=== PATIENT | male | born 1950 | race Hispanic/Latino ===

== ENCOUNTER 2017-11-04 20:51 | Emergency (ER) | payer OTHER ==
[2017-11-04] MEDS ORDERED: SODIUM CHLORIDE 0.9% 1000ML 1,000 ML IV ONE (21:34)
[2017-11-04] MEDS ORDERED: INSULIN HUMULIN R 100 UNIT/ML 3ML ONE (21:35)
[2017-11-04 21:40] LABS: BASOPHILS % (AUTO) 0.6 % (0.0-5.0); EOSINOPHILS % (AUTO) 2.2 % (0.0-8.0); HEMATOCRIT 38.1 % (42-54); LYMPHOCYTES % (AUTO) 17.7 % (21.0-51.0); MEAN CORPUSCULAR HEMOGLOBIN 31.4 pg (27.0-33.0); MEAN CORPUSCULAR VOLUME 89.6 fL (79-99); MONOCYTES % (AUTO) 7.8 % (3.0-13.0); NEUTROPHILS % (AUTO) 71.7 % (40.0-77.0); PLATELET COUNT (AUTO) 144 K/uL (130-400); RED BLOOD CELL COUNT(AUTO) 4.25 MIL/uL (4.50-6.20); RED CELL DISTRIBUTION WIDTH 12.2 % (11.0-15.5); WHITE BLOOD COUNT (AUTO) 7.8 K/uL (4.8-10.8)
[2017-11-04 21:51] LABS: ACETONE,BLOOD NEGATIVE (NEGATIVE)
[2017-11-04 21:54] LABS: ALANINE AMINOTRANSFERASE 27 U/L (12-78); ALBUMIN 3.6 g/dL (3.5-5.0); ASPARTATE AMINOTRANSFERASE 16 U/L (10-37); BILIRUBIN,TOTAL 0.3 mg/dL (0.2-1.0); CARBON DIOXIDE 29 mmol/L (21-32); CHLORIDE 97 mmol/L (101-111); GLOMERULAR FILTR. RATE CALC 80 mL/min (>60); POTASSIUM 4.1 mmol/L (3.5-5.1); SODIUM SERUM 135 mmol/L (136-145); TOTAL PROTEIN, SERUM 7.2 g/dL (6.0-8.3); UREA NITROGEN, BLOOD 13 mg/dL (7-18)
[2017-11-04 21:56] LABS: GLUCOSE,RANDOM 532 mg/dL (70-105)
[2017-11-04 22:09] LABS: APPEARANCE,URINE Clear (CLEAR); BILIRUBIN,URINE Negative (NEGATIVE); COLOR,URINE Yellow (YELLOW); GLUCOSE, URINE (UA) >=1000 mg/dL (NEGATIVE); KETONES,URINE Negative (NEGATIVE); LEUKOCYTE ESTERASE ,URINE Trace (NEGATIVE); NITRATE,URINE Negative (NEGATIVE); OCCULT BLOOD,URINE Negative (NEGATIVE); PROTEIN,URINE Negative (NEGATIVE); UROBILINOGEN,URINE 0.2 mg/dL (0.2-1.0)
[2017-11-04 22:17] LABS: BACTERIA,URINE Rare /HPF (None Seen); RBC,URINE None Seen /HPF (0-1); SQUAMOUS EPITHELIAL CELL,UR 0-2 /LPF (0-2)
== END 2017-11-04 22:56 | disposition home or self-care (01) ==
LOC: EDH 20:51
DX: E11.65 Type 2 diabetes mellitus with hyperglycemia (principal); I10 Essential (primary) hypertension; E78.5 Hyperlipidemia, unspecified; Z72.0 Tobacco use
CPT/HCPCS: 36415; 80053; 81001; 82009; 82948 ×2; 85025; 96361; 96374; 99284; J1815; J7030

== ENCOUNTER 2018-01-02 16:38 | Emergency (ER) | payer OTHER ==
[2018-01-02 16:52] LABS: APPEARANCE,URINE CLEAR (CLEAR); BILIRUBIN,URINE NEGATIVE (NEGATIVE); COLOR,URINE YELLOW (YELLOW); GLUCOSE, URINE (UA) NEGATIVE (NEGATIVE); KETONES,URINE NEGATIVE (NEGATIVE); LEUKOCYTE ESTERASE ,URINE MODERATE (NEGATIVE); NITRATE,URINE NEGATIVE (NEGATIVE); OCCULT BLOOD,URINE NEGATIVE (NEGATIVE); PROTEIN,URINE TRACE (NEGATIVE); UROBILINOGEN,URINE 0.2 mg/dL (0.2-1.0)
[2018-01-02 17:00] LABS: MUCUS,URINE Rare LPF (None Seen); RBC,URINE 0-1 /HPF (0-1)
[2018-01-02 17:01] LABS: BACTERIA,URINE Rare /HPF (None Seen)
[2018-01-02 17:03] LABS: BASOPHILS % (AUTO) 0.8 % (0.0-5.0); EOSINOPHILS % (AUTO) 1.4 % (0.0-8.0); HEMATOCRIT 38.4 % (42-54); LYMPHOCYTES % (AUTO) 20.2 % (21.0-51.0); MEAN CORPUSCULAR HEMOGLOBIN 31.4 pg (27.0-33.0); MEAN CORPUSCULAR HGB CONC 35.7 g/dL (32.0-36.0); MONOCYTES % (AUTO) 6.6 % (3.0-13.0); NUCLEATED RED BLOOD CELLS 0.1 % (0.0-0.19); PLATELET COUNT (AUTO) 184 K/uL (130-400); RED BLOOD CELL COUNT(AUTO) 4.36 MIL/uL (4.50-6.20); RED CELL DISTRIBUTION WIDTH 12.8 % (11.0-15.5); WHITE BLOOD COUNT (AUTO) 9.3 K/uL (4.8-10.8)
[2018-01-02 17:19] LABS: CREATININE 0.9 mg/dL (0.5-1.5); POTASSIUM 3.5 mmol/L (3.5-5.1)
[2018-01-02 17:23] LABS: ALBUMIN 3.9 g/dL (3.5-5.0); BILIRUBIN,TOTAL 0.6 mg/dL (0.2-1.0)
[2018-01-02] MEDS ORDERED: MORPHINE SULFATE 4 MG/1ML SYG ONE (17:24)
== END 2018-01-02 21:15 | disposition home or self-care (01) ==
LOC: EDH 16:38
DX: R10.9 Unspecified abdominal pain (principal); R35.0 Frequency of micturition; R51 Headache; R11.10 Vomiting, unspecified; E11.9 Type 2 diabetes mellitus without complications; E78.5 Hyperlipidemia, unspecified; I10 Essential (primary) hypertension; Z72.0 Tobacco use
CPT/HCPCS: 36415; 71046; 74176; 80053; 81001; 85025; 87804 ×2; 96374; 96375; 99285; J2270

== ENCOUNTER 2019-02-07 11:08 | Emergency (ER) | payer OTHER, MEDICARE ==
[2019-02-07] MEDS ORDERED: IBUPROFEN 600 MG TABLET ONE (11:28)
[2019-02-07 12:17] LABS: BASOPHILS % (AUTO) 0.7 % (0.0-5.0); EOSINOPHILS % (AUTO) 1.5 % (0.0-8.0); HEMATOCRIT 34.7 % (42-54); LYMPHOCYTES % (AUTO) 25.4 % (21.0-51.0); MEAN CORPUSCULAR HEMOGLOBIN 31.4 pg (27.0-33.0); MEAN CORPUSCULAR HGB CONC 35.4 g/dL (32.0-36.0); MEAN CORPUSCULAR VOLUME 88.6 fL (79-99); MONOCYTES % (AUTO) 6.7 % (3.0-13.0); NEUTROPHILS % (AUTO) 65.7 % (40.0-77.0); NUCLEATED RED BLOOD CELLS 0.1 % (0.0-0.19); PLATELET COUNT (AUTO) 154 K/uL (130-400); RED BLOOD CELL COUNT(AUTO) 3.91 MIL/uL (4.50-6.20); RED CELL DISTRIBUTION WIDTH 13.2 % (11.0-15.5)
[2019-02-07 12:30] LABS: CREATININE 0.8 mg/dL (0.5-1.5); POTASSIUM 3.5 mmol/L (3.5-5.1)
[2019-02-07 12:34] LABS: ALBUMIN 3.8 g/dL (3.5-5.0); BILIRUBIN,TOTAL 0.6 mg/dL (0.2-1.0); TOTAL PROTEIN, SERUM 7.3 g/dL (6.0-8.3)
== END 2019-02-07 12:47 | disposition home or self-care (01) ==
LOC: EDH 11:08
DX: R05 Cough (principal); R07.81 Pleurodynia; E11.9 Type 2 diabetes mellitus without complications; E78.5 Hyperlipidemia, unspecified; I10 Essential (primary) hypertension; Z72.0 Tobacco use
CPT/HCPCS: 36415; 71046; 80053; 84484; 85025; 93005

== ENCOUNTER 2020-07-03 12:19 | Emergency (ER) | payer OTHER, MEDICARE ==
[2020-07-03 12:46] LABS: BASOPHILS % (AUTO) 0.3 % (0.0-5.0); EOSINOPHILS % (AUTO) 0.4 % (0.0-8.0); HEMATOCRIT 39.8 % (42-54); LYMPHOCYTES % (AUTO) 17.8 % (21.0-51.0); MEAN CORPUSCULAR HEMOGLOBIN 30.5 pg (27.0-33.0); MEAN CORPUSCULAR HGB CONC 34.7 g/dL (32.0-36.0); MEAN CORPUSCULAR VOLUME 87.9 fL (79-99); MONOCYTES % (AUTO) 8.2 % (3.0-13.0); NEUTROPHILS % (AUTO) 72.7 % (40.0-77.0); PLATELET COUNT (AUTO) 132 K/uL (130-400); RED BLOOD CELL COUNT(AUTO) 4.53 MIL/uL (4.50-6.20); RED CELL DISTRIBUTION WIDTH 12.2 % (11.0-15.5); WHITE BLOOD COUNT (AUTO) 9.8 K/uL (4.8-10.8)
[2020-07-03 12:53] LABS: CREATININE 1.4 mg/dL (0.5-1.5); POTASSIUM 4.3 mmol/L (3.5-5.1)
[2020-07-03] MEDS ORDERED: INSULIN HUMULIN R 100 UNIT/ML 3ML ONE (12:53)
[2020-07-03 12:58] LABS: ALBUMIN 3.5 g/dL (3.5-5.0); BILIRUBIN,TOTAL 0.6 mg/dL (0.2-1.0); TOTAL PROTEIN, SERUM 7.8 g/dL (6.0-8.3)
[2020-07-03 14:11] LABS: APPEARANCE,URINE Clear (CLEAR); BILIRUBIN,URINE Negative (NEGATIVE); COLOR,URINE Yellow (YELLOW); GLUCOSE, URINE (UA) >=1000 mg/dL (NEGATIVE); KETONES,URINE Negative (NEGATIVE); LEUKOCYTE ESTERASE ,URINE Trace (NEGATIVE); NITRATE,URINE Negative (NEGATIVE); OCCULT BLOOD,URINE Negative (NEGATIVE); PH,URINE 5.5 (5.0-8.0); PROTEIN,URINE Negative (NEGATIVE)
[2020-07-03 14:25] LABS: BACTERIA,URINE Few /HPF (None Seen); MUCUS,URINE Few LPF (None Seen); RBC,URINE 0-1 /HPF (0-1); SQUAMOUS EPITHELIAL CELL,UR Few /HPF (0-2)
== END 2020-07-03 14:36 | disposition home or self-care (01) ==
LOC: EDH 12:19
DX: E11.65 Type 2 diabetes mellitus with hyperglycemia (principal); R20.2 Paresthesia of skin; E78.5 Hyperlipidemia, unspecified; I10 Essential (primary) hypertension; Z72.0 Tobacco use
CPT/HCPCS: 36415; 80053; 81001; 82948 ×2; 85025; 96361; 96374; 99283; J1815

== ENCOUNTER 2020-12-22 19:00 | Emergency (ER) | payer OTHER, MEDICARE ==
[2020-12-22 19:39] LABS: APPEARANCE,URINE Cloudy (CLEAR); BILIRUBIN,URINE Negative (NEGATIVE); COLOR,URINE Yellow (YELLOW); GLUCOSE, URINE (UA) >=1000 mg/dL (NEGATIVE); KETONES,URINE Negative (NEGATIVE); LEUKOCYTE ESTERASE ,URINE Negative (NEGATIVE); NITRATE,URINE Negative (NEGATIVE); OCCULT BLOOD,URINE Negative (NEGATIVE); PROTEIN,URINE Negative (NEGATIVE); UROBILINOGEN,URINE 0.2 mg/dL (0.2-1.0)
[2020-12-22 19:47] LABS: BACTERIA,URINE Rare /HPF (None Seen); MUCUS,URINE Few LPF (None Seen); SQUAMOUS EPITHELIAL CELL,UR Moderate /HPF (0-2)
[2020-12-22] MEDS ORDERED: TAMSULOSIN HCL 0.4 MG CAP.ER.24H ONE (20:07)
[2020-12-22] MEDS ORDERED: KETOROLAC TROMETHAMINE 15MG/ML ONE (20:08)
[2020-12-22 20:18] LABS: BASOPHILS % (AUTO) 1.1 % (0.0-5.0); EOSINOPHILS % (AUTO) 2.1 % (0.0-8.0); HEMATOCRIT 36.7 % (42-54); LYMPHOCYTES % (AUTO) 26.8 % (21.0-51.0); MEAN CORPUSCULAR HEMOGLOBIN 30.1 pg (27.0-33.0); MEAN CORPUSCULAR HGB CONC 34.3 g/dL (32.0-36.0); MEAN CORPUSCULAR VOLUME 87.6 fL (79-99); MONOCYTES % (AUTO) 7.4 % (3.0-13.0); NEUTROPHILS % (AUTO) 62.1 % (40.0-77.0); PLATELET COUNT (AUTO) 175 K/uL (130-400); RED BLOOD CELL COUNT(AUTO) 4.19 MIL/uL (4.50-6.20); WHITE BLOOD COUNT (AUTO) 6.5 K/uL (4.8-10.8)
[2020-12-22 20:42] LABS: CREATININE 1.1 mg/dL (0.5-1.5); POTASSIUM 3.9 mmol/L (3.5-5.1)
[2020-12-22 20:46] LABS: ALBUMIN 3.8 g/dL (3.5-5.0); BILIRUBIN,TOTAL 0.5 mg/dL (0.2-1.0); TOTAL PROTEIN, SERUM 7.6 g/dL (6.0-8.3)
[2020-12-22] MEDS ORDERED: HYDROCODONE/ACETAMINOPHEN 5/325 MG TAB ONE (21:04)
== END 2020-12-22 21:16 | disposition home or self-care (01) ==
LOC: EDH 19:00
DX: S39.012A Strain of muscle, fascia and tendon of lower back, initial encounter (principal); S39.013A Strain of muscle, fascia and tendon of pelvis, initial encounter; S39.011A Strain of muscle, fascia and tendon of abdomen, initial encounter; R10.32 Left lower quadrant pain; M54.5 Low back pain; E11.9 Type 2 diabetes mellitus without complications; E78.5 Hyperlipidemia, unspecified; I10 Essential (primary) hypertension; X58.XXXA Exposure to other specified factors, initial encounter; Y93.89 Activity, other specified; Y92.89 Other specified places as the place of occurrence of the external cause; Y99.8 Other external cause status
CPT/HCPCS: 36415; 74176; 80053; 81001; 83690; 84484; 85025; 93005; 96374; 99285; J1885

== ENCOUNTER 2024-10-28 04:12 | Inpatient (IN) | payer OTHER, MEDICARE ==
[~2024-10-28] VITALS: Ht 160 cm; Wt 77.7 kg
--- NOTE | 2024-10-28 04:16 | NUR ---
PT TAKEN TO CT AT THIS TIME
--- NOTE | 2024-10-28 04:18 | NUR ---
family did not bring medications
[2024-10-28 04:27] LABS: BASOPHILS # (AUTO) 0.06 K/uL (0.00-0.20); BASOPHILS % (AUTO) 0.6 % (0.0-5.0); EOSINOPHILS # (AUTO) 0.15 K/uL (0.00-0.70); EOSINOPHILS % (AUTO) 1.5 % (0.0-8.0); HEMATOCRIT 43.8 % (42-54); IMMATURE GRANULOCYTE ABSOLUTE 0.06 K/uL (0-1); LYMPHOCYTES # (AUTO) 4.3 K/uL (1.0-4.8); LYMPHOCYTES % (AUTO) 42.1 % (21.0-51.0); MEAN CORPUSCULAR HEMOGLOBIN 30.4 pg (27.0-33.0); MEAN CORPUSCULAR HGB CONC 34.9 g/dL (32.0-36.0); MEAN CORPUSCULAR VOLUME 86.9 fL (79-99); MONOCYTES # (AUTO) 0.7 K/uL (0.1-1.0); MONOCYTES % (AUTO) 6.7 % (3.0-13.0); NEUTROPHILS # (AUTO) 4.9 K/uL (1.8-7.7); NEUTROPHILS % (AUTO) 48.5 % (40.0-77.0); PLATELET COUNT (AUTO) 188 K/uL (130-400); RED BLOOD CELL COUNT(AUTO) 5.04 MIL/uL (4.50-6.20); RED CELL DISTRIBUTION WIDTH 12.2 % (11.0-15.5); WHITE BLOOD COUNT (AUTO) 10.1 K/uL (4.8-10.8)
[2024-10-28 04:33] LABS: POTASSIUM 3.5 mmol/L (3.5-5.1)
[2024-10-28 04:39] LABS: INR <= 0.93 (0.85-1.15); PROTHROMBIN TIME 10.2 SEC (9.6-11.6)
[2024-10-28 04:52] LABS: B-TYPE NATRIURETIC PEPTIDE 12 pg/mL (0-100)
--- NOTE | 2024-10-28 04:58 | EKG ---
[facility] Test Date: 2024-10-28 Test Time: 04:14:49 Pat Name: FLAVIA RAMIREZ Department: ED Room: 202 Gender: M Mending Carrier: [id number] : 1950 Requested By: THAI JIMENEZ Order Number: [id number] Reading MD: Rolf Santillan Measurements Intervals [place] Rate: 71 P: 0 TN: 76 QRS: 38 QRSD: 112 T: 32 QT: 410 QTc: 446 Interpretive Statements Sinus rhythm Low voltage, extremity leads Compared to ECG 12/22/2020 19:28:31 Ventricular premature complex(es) no longer present Electronically Signed On 10-28-2024 18:40:23 CERTIFIED MEDICAL ASSISTANT by Rolf Santillan Please click the below link to view image of tracing.
[2024-10-28 05:13] LABS: APPEARANCE,URINE CLEAR (CLEAR); BILIRUBIN,URINE NEGATIVE (NEGATIVE); COLOR,URINE COLORLESS (YELLOW); GLUCOSE, URINE (UA) >=1000 mg/dL (NEGATIVE); KETONES,URINE NEGATIVE (NEGATIVE); LEUKOCYTE ESTERASE ,URINE NEGATIVE Leu/uL (NEGATIVE); NITRATE,URINE NEGATIVE (NEGATIVE); OCCULT BLOOD,URINE NEGATIVE (NEGATIVE); PROTEIN,URINE NEGATIVE (NEGATIVE); UROBILINOGEN,URINE 0.2 mg/dL (0.2-1.0)
[2024-10-28 05:14] LABS: ADD UA MICROSCOPIC YES
[2024-10-28 05:16] LABS: AMPHET/METH SCREEN,URINE NEGATIVE (NEGATIVE); BARBITURATE SCREEN, URINE NEGATIVE (NEGATIVE); BENZODIAZEPINES SCREEN,URINE NEGATIVE (NEGATIVE); CANNABINOID SCREEN,URINE NEGATIVE (NEGATIVE); COCAINE SCREEN,URINE NEGATIVE (NEGATIVE); OPIATE SCREEN,URINE NEGATIVE (NEGATIVE); PHENCYCLIDINE SCREEN,URINE NEGATIVE (NEGATIVE)
[2024-10-28 05:17] LABS: BACTERIA,URINE FEW /HPF (None Seen); MUCUS,URINE RARE LPF (None Seen); RBC,URINE 0-1 /HPF (0-1); SQUAMOUS EPITHELIAL CELL,UR RARE /HPF (0-2)
--- NOTE | 2024-10-28 06:38 | ERN ---
General Chief Complaint: Multiple Trauma/Fall Stated Complaint: S/P FALL Time Seen by MD: 04:18 History of Present Illness Initial Comments 74-year-old male brought in by family for altered mentation possible an injury. Patient was drinking earlier in the night. According to family they found him down and reported that they think he fell. They report that his respirations were abnormal and they briefly started CPR because they did not think he was breathing. On arrival here he was altered but breathing. He has no complaints. He is clinically intoxicated but able to answer yes or no questions. He was slurring his words. There is no obvious signs of trauma. Allergies: Coded Allergies: No Known Drug Allergies (Unverified Allergy, Unknown, 06/26/19) Home Meds Reported Medications Amlodipine Besylate (Amlodipine Besylate) 10 Mg Tablet, 10 MG PO DAILY for 30 Days, #30 TAB 0 Refills 10/28/24 Gabapentin (Gabapentin) 100 Mg Capsule, 100 MG PO DAILY, CAP 10/28/24 Levothyroxine Sodium (Levothyroxine) 50 Mcg Capsule, 50 MCG PO ACBKFST, CAP 10/28/24 Losartan Potassium (Losartan Potassium) 100 Mg Tablet, 100 MG PO DAILY, TAB 10/28/24 Lovastatin (Lovastatin) 20 Mg Tablet, 20 MG PO DAILY, TAB 10/28/24 Metformin HCl (Metformin HCl) 1,000 Mg Tablet, 1000 MG PO BIDMEALS, TAB 10/28/24 Semaglutide (Ozempic) 1 Mg/0.75 Ml (4 Mg/3 Ml) Pen.injctr, 1 MG SQ QWEEK for 30 Days, #3 ML 0 Refills 10/28/24 Past Medical History Past Medical History: Diabetes-Type II, Unknown Past Surgical History: Unknown ROS Dictation CONSTITUTIONAL: No chills, no fever, no weakness, no diaphoresis, no malaise. HEAD/FACE: No signs of trauma. EENT: No eye pain, no blurred vision, no tearing, no double vision, no ear pain, no ear discharge, no nose pain, no nasal congestion, no throat pain, no throat swelling, no mouth pain. RESPIRATORY: No cough, no orthopnea, no SOB, no stridor, no wheezing. CARDIOVASCULAR: No chest pain, no edema, no palpitations, no syncope. GASTROINTESTINAL/ABDOMINAL: No abdominal pain, no constipation, no diarrhea, no nausea, no vomiting. GENITOURINARY: No abnormal discharge, no dysuria, no frequent urination, no hematuria. No complaints of pain in the genitals. MUSCULOSKELETAL: No back pain, no gout, no joint pain, no joint swelling, no muscle pain, no muscle stiffness, no neck pain. INTEGUMENTARY: No change in color, no change in hair/nails, no dryness, no lesion, no lumps, no rash. NEUROLOGICAL/PSYCH: No anxiety, not depressed, no emotional problem, no headache, no numbness, no pre-existing deficit, no history of seizures, no tremors, no weakness. HEMATOLOGIC/LYMPHATIC: Not anemic, no history of blood clots, no apparent bleeding, no bruising, glands not swollen. All Systems Negative, Except as Noted. Physical Exam Physical Exam Dictation VITAL SIGNS: Reviewed. GENERAL APPEARANCE: Slurring words but if of answer questions, obese. HEAD AND FACE: Non-traumatic. EYES: PERRL, pink conjunctivas, eyelid no trauma, anterior chamber clear. EARS: Pinnas intact and no signs of trauma or erythema. Ear canals clear and no discharge. TMs no erythema. NOSE: No discharge, no bleeding. OROPHARYNX: Mouth normal, teeth no caries, tongue pink. Pharynx clear, no erythema. Tonsils no exudates, no abscesses noted. Mucous membrane moist. NECK: Supple, non-tender, no thyromegaly, no masses, no JVD, no bruits. BREAST: Deferred. CHEST: No tenderness, no crepitus, no paradoxical movement, no retractions. LUNGS: Clear, well-ventilated, symmetric, no rales, no wheezing, no rhonchi, no stridor, good breath sounds bilaterally. HEART: Regular rate, regular rhythm, no murmur, no gallops. VASCULAR: No peripheral edema. ABDOMEN: Soft, positive bowel sounds, nondistended, no guarding, nontender, no rebound, no masses no hepatomegaly, no splenomegaly, no Foote's sign, no hernias. RECTAL: Deferred. GENITAL: Deferred. NEUROLOGICAL: Normal speech, gross motor function intact, gross sensory funct ion intact. MUSCULOSKELETAL: Neck nontender, full range of motion, back nontender, full range of motion. EXTREMITIES: Nontender, full range of motion. SKIN: Color pink, dry, no turgor, no rash, no lacerations, no abrasions, no contusions. LYMPHATICS: Deferred. Results Laboratory and Microbiology Lab and Micro Result Laboratory Tests Test 10/28/24 04:16 10/28/24 04:54 White Blood Count 10.1 K/uL (4.8-10.8) Red Blood Count 5.04 MIL/uL (4.50-6.20) Hemoglobin 15.3 g/dL (14.0-18.0) Hematocrit 43.8 % (42-54) Mean Corpuscular Volume 86.9 fL (79-99) Mean Corpuscular Hemoglobin 30.4 pg (27.0-33.0) Mean Corpuscular Hemoglobin Concent 34.9 g/dL (32.0-36.0) Red Cell Distribution Width 12.2 % (11.0-15.5) Platelet Count 188 K/uL (130-400) Mean Platelet Volume 11.6 fL (7.5-10.5) H Immature Granulocyte % (Auto) 0.6 % (0-1) Neutrophils (%) (Auto) 48.5 % (40.0-77.0) Lymphocytes (%) (Auto) 42.1 % (21.0-51.0) Monocytes (%) (Auto) 6.7 % (3.0-13.0) Eosinophils (%) (Auto) 1.5 % (0.0-8.0) Basophils (%) (Auto) 0.6 % (0.0-5.0) Neutrophils # (Auto) 4.9 K/uL (1.8-7.7) Lymphocytes # (Auto) 4.3 K/uL (1.0-4.8) Monocytes # (Auto) 0.7 K/uL (0.1-1.0) Eosinophils # (Auto) 0.15 K/uL (0.00-0.70) Basophils # (Auto) 0.06 K/uL (0.00-0.20) Absolute Immature Granulocyte (auto 0.06 K/uL (0-1) Nucleated Red Blood Cells 0.0 % (0.0-0.19) Prothrombin Time 10.2 SEC (9.6-11.6) Prothromb Time International Ratio <= 0.93 (0.85-1.15) Sodium Level 139 mmol/L (136-145) Potassium Level 3.5 mmol/L (3.5-5.1) Chloride Level 99 mmol/L (101-111) L Carbon Dioxide Level 30 mmol/L (21-32) Blood Urea Nitrogen 8 mg/dL (7-18) Creatinine 1.0 mg/dL (0.5-1.3) Glomerular Filtration Rate Calc 80 mL/min (>90) Random Glucose 300 mg/dL (70-105) H Total Calcium 9.1 mg/dL (8.5-10.1) Total Creatine Kinase 177 U/L (21-232) # Troponin I High Sensitivity 6.1 ng/L (4-75) B-Type Natriuretic Peptide 12 pg/mL (0-100) Serum Alcohol 250 mg/dL (0-10) H Urine Color COLORLESS (YELLOW) Urine Appearance CLEAR (CLEAR) Urine pH 5.0 (5.0-8.0) Urine Specific [place] 1.006 (1.001-1.031) Urine Protein NEGATIVE mg/dL (NEGATIVE) Urine Glucose (UA) >=1000 mg/dL (NEGATIVE) H Urine Ketones NEGATIVE mg/dL (NEGATIVE) Urine Occult Blood NEGATIVE (NEGATIVE) Urine Nitrate NEGATIVE (NEGATIVE) Urine Bilirubin NEGATIVE mg/dL (NEGATIVE) Urine Urobilinogen 0.2 mg/dL (0.2-1.0) Urine Leukocyte Esterase NEGATIVE [place]/uL Urine RBC 0-1 /HPF (0-1) Urine WBC 2-5 /HPF (0-1) H Urine Squamous Epithelial Cells RARE /HPF (0-2) Urine Bacteria FEW /HPF (None Seen) Urine Opiates Screen NEGATIVE (NEGATIVE) Urine Barbiturates Screen NEGATIVE (NEGATIVE) Urine Phencyclidine Screen NEGATIVE (NEGATIVE) Urine Amphetamines Screen NEGATIVE (NEGATIVE) Urine Benzodiazepines Screen NEGATIVE (NEGATIVE) Urine Cocaine Screen NEGATIVE (NEGATIVE) Urine Marijuana (THC) Screen NEGATIVE (NEGATIVE) MDM MDM: Differential diagnosis: Rationale: Tests considered and ordered secondary to shared decision making include: Previous outside records reviewed: Old ER visits. Risk of complication and/or morbidity or mortality of patient management: None Medications-Per medication reconciliation Need for hospitalization: Patient does meet criteria for hospitalization. Need for emergency major/minor surgery: No There are no social concerns with this patient. Prescription drug management Prescriptions will include symptomatic care Patient's prior external medical records from other ER visits were reviewed by me as indicated. Prior testing and results from previous visits were reviewed. Prior tests were taken into account with medical decision making and resource utilization, independent historian/historians were used to obtain complete medical history. I independently interpreted the test that were performed, results were reviewed by me and considered findings on radiology if ordered. Medical management and examination interpretation discussions were had by me with other qualified healthcare professionals as indicated for the patient's care. ED Course Orders Procedure Category Date Status Time Alcohol, Blood LAB 10/28/24 Complete 04:18 Cardiac Panel LAB 10/28/24 Complete 04:18 Cbc With Differential LAB 10/28/24 Complete 04:18 Basic Metabolic Panel LAB 10/28/24 Complete 04:18 B-Type Natriuretic LAB 10/28/24 Complete Peptide 04:18 Prothrombin Time With LAB 10/28/24 Complete INR 04:18 Urinalysis Profile LAB 10/28/24 Complete 04:18 12 Lead Ekg Tracing- EKG 10/28/24 Resulted Technical 04:18 Chest 1vw RAD 10/28/24 Resulted 04:18 Drug Screen Urine LAB 10/28/24 Complete 04:18 Ct Head/Brain W/O CT 10/28/24 Resulted Contrast 04:18 Ct Cervical Spine W/O CT 10/28/24 Resulted Contrast 04:18 Vital Signs Date Time Temp Pulse Resp B/P (MAP) Pulse Ox O2 Delivery O2 Flow Rate FiO2 10/28/24 07:16 97.5 70 18 105/61 100 Room Air* 0 21 10/28/24 04:45 97.2 82 12 111/51 97 Room Air* 0 21 10/28/24 04:15 97.0 76 20 156/73 98 Room Air* 0 21 DX & DISP Disposition: Inpatient Departure Impression: Primary Impression: Alcohol intoxication Additional Impression: Fall at home Condition: Stable Referrals: SUNDEEP BARAKAT MD (PCP) THAI JIMENEZ DO Oct 28, 2024 06:38 BETTY GIL MD Oct 28, 2024 08:31
--- NOTE | 2024-10-28 08:24 | HMCIMG ---
PORTABLE CHEST RADIOGRAPH INDICATION: chest pain COMPARISON: 02/07/2019 FINDINGS: personnel monitor leads overlie the field of view. Heart size is normal. The pulmonary vascularity and yg appear normal. No abnormal pulmonary parenchymal opacity or consolidation identified. No significant pleural effusion noted. No pneumothorax detected. IMPRESSION: No radiographic evidence for any acute cardiopulmonary process.
--- NOTE | 2024-10-28 08:28 | HMCIMG ---
CT HEAD WITHOUT CONTRAST INDICATION: Trauma TECHNIQUE: Noncontrast axial helical CT images from the vertex through the skull base using 5 mm slice thickness without contrast material. Coronal and sagittal reconstructions were also included. Dose reduction techniques was used using integrated, automated and adaptive dose reduction exposure control. CT was performed with one or more of the following dose reduction techniques: Automated exposure control, adjustment of the mA and/or kV according to patient size, or use of iterative reconstruction technique. COMPARISON: None FINDINGS: Scattered and coalescent subcortical and periventricular white matter low attenuating areas likely represent residual of chronic small vessel arteriopathy and/or remote vascular insult. Generalized mild cerebral cortical atrophy is present.. No evidence for abnormal extra-axial fluid collections or masses. The ventricles and sulci are normal in size and configuration. No evidence for intracranial parenchymal, epidural, or subdural hemorrhage, mass effect or midline shift. The baker-white matter differentiation is well preserved. No secondary evidence to suggest acute ischemia. Mild calcific plaque is present along the muñiz of the cavernous segments of both internal carotid arteries. The brainstem and cerebellum appear normal. The visualized orbits appear unremarkable. Mild right maxillary sinus mucosal thickening. Remainder of the visible paranasal sinuses and mastoid air cells are clear. The calvarium appears normal. IMPRESSION: Chronic white matter ischemic changes, mild brain atrophy, and arteriosclerotic disease as described, without acute component.
--- NOTE | 2024-10-28 08:28 | HMCIMG ---
CT CERVICAL SPINE WITHOUT CONTRAST INDICATION: Neck pain TECHNIQUE: Contiguous axial computed tomography imaging using 2 mm slice thickness through the cervical spine. Reconstructions in the sagittal and coronal planes. CT was performed with one or more of the following dose reduction techniques: Automated exposure control, adjustment of the mA and/or kV according to patient size, or use of iterative reconstruction technique. COMPARISON: None. FINDINGS: Straightening of the normal lordosis may be related to overlying muscle spasm, underlying degenerative joint disease and/or patient positioning. Vertebral bodies are normal stature without evidence for compression deformity or fracture. No evidence for subluxation. Multilevel mild to moderate cervical spondylosis. The craniocervical junction appears normal. The atlantoaxial articulation is within normal limits. The dens is intact. The pre- and paravertebral soft tissues appear unremarkable. IMPRESSION: No evidence for fracture or subluxation.
[2024-10-28] MEDS ORDERED: M.V.I. IV [ADULT] 10 ML in 0.9%NACL 1000ML 1,000 ML IV SCH (08:30)
[2024-10-28] MEDS ORDERED: ondanSETRON 4MG INJ IVP PRN (08:30)
[2024-10-28] MEDS ORDERED: acetaMINOPHEN 650 MG SUPPOSITORY RC PRN (08:30)
[2024-10-28] MEDS ORDERED: hydrALAZine 20MG/ML VIAL IV PRN (08:30)
[2024-10-28] MEDS ORDERED: FOLic ACID 5 MG/ML VIAL IV SCH (09:00)
[2024-10-28] MEDS ORDERED: PHARMACY COMMUNICATION MISC PRN (09:00)
[2024-10-28] MEDS ORDERED: COMPOUND IV REFRIGERATED 1 EACH IVSOLN MISC PRN (09:00)
[2024-10-28] MEDS ORDERED: THIAMINE HCL 100 MG/ML 2ML VIAL IVP SCH (09:00)
[2024-10-28] MEDS ORDERED: chlordiazePOXIDE HCL 25 MG CAP PO PRN ×2 (09:00)
[2024-10-28] MEDS ORDERED: PROMETHAZINE HCL 25 MG TABLET PO PRN (09:00)
[2024-10-28 09:07] LABS: BASOPHILS # (AUTO) 0.05 K/uL (0.00-0.20); BASOPHILS % (AUTO) 0.8 % (0.0-5.0); EOSINOPHILS # (AUTO) 0.07 K/uL (0.00-0.70); EOSINOPHILS % (AUTO) 1.1 % (0.0-8.0); HEMATOCRIT 41.7 % (42-54); IMMATURE GRANULOCYTE ABSOLUTE 0.03 K/uL (0-1); LYMPHOCYTES # (AUTO) 1.8 K/uL (1.0-4.8); LYMPHOCYTES % (AUTO) 28.2 % (21.0-51.0); MEAN CORPUSCULAR HEMOGLOBIN 30.2 pg (27.0-33.0); MEAN CORPUSCULAR HGB CONC 34.3 g/dL (32.0-36.0); MEAN CORPUSCULAR VOLUME 88.2 fL (79-99); MONOCYTES # (AUTO) 0.4 K/uL (0.1-1.0); MONOCYTES % (AUTO) 6.2 % (3.0-13.0); NEUTROPHILS % (AUTO) 63.2 % (40.0-77.0); PLATELET COUNT (AUTO) 152 K/uL (130-400); RED BLOOD CELL COUNT(AUTO) 4.73 MIL/uL (4.50-6.20); WHITE BLOOD COUNT (AUTO) 6.3 K/uL (4.8-10.8)
[2024-10-28] MEDS: THIAMINE HCL 100 MG, FOLic ACID 5 MG/ML VIAL 1 MG, M.V.I. IV [ADULT] 10 ML in 0.9%NACL ... IV SCH (09:36)
[2024-10-28] MEDS: FAMOTIDINE 20MG TAB PO SCH (09:37)
[2024-10-28 10:00] VITALS: O2SAT 96
[2024-10-28 10:15] LABS: ALBUMIN 3.5 g/dL (3.5-5.0); BILIRUBIN,TOTAL 0.4 mg/dL (0.2-1.0); CREATININE 0.8 mg/dL (0.5-1.3); MAGNESIUM 1.7 mg/dL (1.80-2.40); PHOSPHORUS 4.1 mg/dL (2.5-4.9); POTASSIUM 4.4 mmol/L (3.5-5.1); TOTAL PROTEIN, SERUM 7.2 g/dL (6.0-8.3)
[2024-10-28 11:56] VITALS: BP 141/87; PULSE 79; RESP 18; TEMP 98.2
--- NOTE | 2024-10-28 15:20 | HP ---
[facility] HISTORY & PHYSICAL Date Patient Seen: Oct 28, 2024 Time of Visit: 15:20 Supervising Physician: Reece Schulz Primary Care Physician: Dr Jackie Vidal MD Outpatient Specialists: [ Inpatient Consults: [None PROBLEM LIST: Alcohol intoxication, POA ETOH of 250 Fall POA Hyperglycemia in the presence of type 2 diabetes mellitus, POA Hypomagnesemia, POA Essential hypertension, POA Hyperlipidemia, POA Obesity BMI of 32 Suspected undiagnosed and untreated PAIGE, Stop BANG score 5 (High), Serum Co2 30 Smoker HPI: This is a 74-year-old obese male with a past medical history of type 2 diabetes mellitus, hyperlipidemia, hypertension who presented to the emergency department for altered mental status and fall. As per patient's he was heavily drinking due to the end of the year and according to family they found him down on the floor. They reported patient's breathing was abnormal and CPR was started briefly per family member he is a anything he was breathing. On arrival to the emergency department patient was altered but as per ED physician he was breathing and airway was protected. He was found to be slurring his words and was found to be clinically intoxicated per ED physician. Initial vital signs in the ED were temperature 97 heart rate of 76 respiratory rate of 20 blood pressure 156/73 saturating 98 percent on room air. On laboratory CBC was unremarkable. Cardiac enzymes were negative x3. Chemistry unremarkable other than elevated glucose of 300 milligrams/deciliter magnesium 1.7. UDS was n egative. serum alcohol level was 250. Urinalysis showed a glucose of greater than 1000 and WBCs of [address] of the cervical spine showed no evidence of fracture subluxation and C-collar was removed per ED physician. On chest x-ray there is no radiographic evidence of any acute cardiopulmonary process. Head CT was found to be negative for intracranial bleed with chronic white matter ischemic changes, mild brain atrophy and arteriosclerotic disease as described without acute component. Carotid ultrasound there is a patent vasculature and no Doppler evidence of carotid stenosis. Per ED physician: will like patient to be admitted under observation on tele floor and if workup is negative likely discharge in the morning. On assessment patient was awake alert and oriented x3. was at the bedside only complaint is that of the headache. He denies any alcohol abuse. He does admit to occasional drinking only but last night he was celebrating the new year and had too much to drink as per patient. He denies any shortness of breath chest pain or palpitations. Patient denies any chills fever or urinary frequency. He reports he takes a pill for his diabetes which is metformin 1000 milligrams p.o. b.i.d. and levothyroxine 50 micrograms p.o. q.a.m.. Family member pending to bring the rest of his medications and we will resume once reconciled. PAST MEDICAL HX: Type 2 diabetes mellitus Hyperlipidemia Hypertension PAST SURGICAL HX: Hernia repair SOCIAL HISTORY: Occasional smoker Alcohol use Lives at home with . Coded Allergies: No Known Drug Allergies (Unverified Allergy, Unknown, 06/26/19) REVIEW OF SYSTEMS: 12 point ROS reviewed with patient. Pertinent positives mentioned above. Otherwise negative. PHYSICAL EXAM: GENERAL: alert, weak, awake oriented x 3 HEENT: EOMI, Sclera non icteric, moist mucosa NECK: Supple, no JVD, trachea midline LUNGS: Clear breath sounds bilaterally. No wheezes HEART: Regular rate and rhythm. Normal S1 and S2, without murmurs ABD: Abdomen soft, nontender. Bowel sounds present EXT: No clubbing cyanosis or edema NEURO: Alert and oriented to person, follows commands Vital Signs (last 8hr) Date Time Temp Pulse Resp B/P (MAP) Pulse Ox O2 Delivery O2 Flow Rate FiO2 10/28/24 11:56 98.2 79 18 141/87 98 10/28/24 10:00 96 Room Air* 0 21 LABS: Hematology Labs: Test 10/28/24 08:56 Range/Units White Blood Count 6.3 # 4.8-10.8 K/uL Red Blood Count 4.73 4.50-6.20 MIL/uL Hemoglobin 14.3 14.0-18.0 g/dL Hematocrit 41.7 L 42-54 % Mean Corpuscular Volume 88.2 79-99 fL Mean Corpuscular Hemoglobin 30.2 27.0-33.0 pg Mean Corpuscular Hemoglobin Concent 34.3 32.0-36.0 g/dL Red Cell Distribution Width 12.0 11.0-15.5 % Platelet Count 152 130-400 K/uL Mean Platelet Volume 11.7 H 7.5-10.5 fL Immature Granulocyte % (Auto) 0.5 0-1 % Neutrophils (%) (Auto) 63.2 40.0-77.0 % Lymphocytes (%) (Auto) 28.2 21.0-51.0 % Monocytes (%) (Auto) 6.2 3.0-13.0 % Eosinophils (%) (Auto) 1.1 0.0-8.0 % Basophils (%) (Auto) 0.8 0.0-5.0 % Neutrophils # (Auto) 4.0 1.8-7.7 K/uL Lymphocytes # (Auto) 1.8 1.0-4.8 K/uL Monocytes # (Auto) 0.4 0.1-1.0 K/uL Eosinophils # (Auto) 0.07 0.00-0.70 K/uL Basophils # (Auto) 0.05 0.00-0.20 K/uL Absolute Immature Granulocyte (auto 0.03 0-1 K/uL Nucleated Red Blood Cells 0.0 0.0-0.19 % Chemistry Labs: Test 10/28/24 11:24 10/28/24 08:56 10/28/24 04:16 Range/Units Whole Blood Glucose 227 H 70-110 MG/DL Sodium Level 139 136-145 mmol/L Potassium Level 4.4 3.5-5.1 mmol/L Chloride Level 103 101-111 mmol/L Carbon Dioxide Level 23 21-32 mmol/L Blood Urea Nitrogen 8 7-18 mg/dL Creatinine 0.8 0.5-1.3 mg/dL Glomerular Filtration Rate Calc 94 >90 mL/min Random Glucose 273 H 70-105 mg/dL Total Calcium 8.7 8.5-10.1 mg/dL Phosphorus Level 4.1 2.5-4.9 mg/dL Magnesium Level 1.70 L 1.80-2.40 mg/dL Total Bilirubin 0.4 0.2-1.0 mg/dL Aspartate Amino Transf (AST/SGOT) 28 10-37 U/L Alanine Aminotransferase (ALT/SGPT) 29 12-78 U/L Alkaline Phosphatase 133 50-136 U/L Total Creatine Kinase 162 21-232 U/L Troponin I High Sensitivity 9.1 4-75 ng/L Total Protein 7.2 6.0-8.3 g/dL Albumin 3.5 3.5-5.0 g/dL B-Type Natriuretic Peptide 12 0-100 pg/mL Coagulation Labs: Test 10/28/24 04:16 Range/Units Prothrombin Time 10.2 9.6-11.6 SEC Prothromb Time International Ratio <= 0.93 0.85-1.15 DIAGNOSTICS / RADIOLOGY RESULTS: [ ] IMAGING REPORT Signed PATIENT: FLAVIA RAMIREZ SR MR#: [id number] : 1950 SEX: M AGE: 74 LOCATION: EDH ORDER 0 STATUS: REG ER [facility] REPORT#: [id number] SERVICE 7 REASON: head injury ORDERING PHYSICIAN: TAHI JIMENEZ DO PROCEDURE: C SPIN WO - CT CERVICAL SPINE W/O CONTRAST CT CERVICAL SPINE WITHOUT CONTRAST INDICATION: Neck pain TECHNIQUE: Contiguous axial computed tomography imaging using 2 mm slice thickness through the cervical spine. Reconstructions in the sagittal and coronal planes. CT was performed with one or more of the following dose reduction techniques: Automated exposure control, adjustment of the mA and/or kV according to patient size, or use of iterative reconstruction technique. COMPARISON: None. FINDINGS: Straightening of the normal lordosis may be related to overlying muscle spasm, underlying degenerative joint disease and/or patient positioning. Vertebral bodies are normal stature without evidence for compression deformity or fracture. No evidence for subluxation. Multilevel mild to moderate cervical spondylosis. The craniocervical junction appears normal. The atlantoaxial articulation is within normal limits. The dens is intact. The pre- and paravertebral soft tissues appear unremarkable. IMPRESSION: No evidence for fracture or subluxation. DICTATED BY: DEVON GARZA MD DATE: 10/28/24821 ELECTRONICALLY SIGNED BY: DEVON GARZA MD DATE: 10/28/24827 IMAGING REPORT Signed PATIENT: FLAVIA RAMIREZ SR MR#: [id number] : 1950 SEX: M AGE: 74 LOCATION: ED ORDER 0 STATUS: REG ER [facility] REPORT#: [id number] SERVICE 7 REASON: chest pain ORDERING PHYSICIAN: THAI JIMENEZ DO PROCEDURE: CXR1VW - CHEST 1VW PORTABLE CHEST RADIOGRAPH INDICATION: chest pain COMPARISON: 02/07/2019 FINDINGS: lease administration analyst leads overlie the field of view. Heart size is normal. The pulmonary vascularity and yg appear normal. No abnormal pulmonary parenchymal opacity or consolidation identified. No significant pleural effusion noted. No pneumothorax detected. IMPRESSION: No radiographic evidence for any acute cardiopulmonary process. DICTATED BY: DEVON GARZA MD DATE: 10/28/24820 ELECTRONICALLY SIGNED BY: DEVON GARZA MD DATE: 10/28/24823 IMAGING REPORT Signed PATIENT: FLAVIA RAMIREZ SR MR#: [id number] : 1950 SEX: M AGE: 74 LOCATION: [facility] ORDER 0 STATUS: REG ER REPORT#: [id number] SERVICE REASON: head injury ORDERING PHYSICIAN: THAI JIMENEZ DO PROCEDURE: HEAD WO - CT HEAD/BRAIN W/O CONTRAST CT HEAD WITHOUT CONTRAST INDICATION: Trauma TECHNIQUE: Noncontrast axial helical CT images from the vertex through the skull base using 5 mm slice thickness without contrast material. Coronal and sagittal reconstructions were also included. Dose reduction techniques was used using integrated, automated and adaptive dose reduction exposure control. CT was performed with one or more of the following dose reduction techniques: Automated exposure control, adjustment of the mA and/or kV according to patient size, or use of iterative reconstruction technique. COMPARISON: None FINDINGS: Scattered and coalescent subcortical and periventricular white matter low attenuating areas likely represent residual of chronic small vessel arteriopathy and/or remote vascular insult. Generalized mild cerebral cortical atrophy is present.. No evidence for abnormal extra-axial fluid collections or masses. The ventricles and sulci are normal in size and configuration. No evidence for intracranial parenchymal, epidural, or subdural hemorrhage, mass effect or midline shift. The baker-white matter differentiation is well preserved. No secondary evidence to suggest acute ischemia. Mild calcific plaque is present along the muñiz of the cavernous segments of both internal carotid arteries. The brainstem and cerebellum appear normal. The visualized orbits appear unremarkable. Mild right maxillary sinus mucosal thickening. Remainder of the visible paranasal sinuses and mastoid air cells are clear. The calvarium appears normal. IMPRESSION: Chronic white matter ischemic changes, mild brain atrophy, and arteriosclerotic disease as described, without acute component. DICTATED BY: DEVON GARZA MD DATE: 10/28/24821 ELECTRONICALLY SIGNED BY: DEVON GARZA MD DATE: 10/28/24827 Signed PATIENT: FLAVIA RAMIREZ SR MR#: [id number] : 1950 SEX: M AGE: 74 LOCATION: 2AH ORDER 30 STATUS: ADM IN REPORT#: [id number] SERVICE 29 REASON: SYNCOPE EPISODE ORDERING PHYSICIAN: PHUONG BRADLEY PROCEDURE: CAROTID - US CAROTID DUPLEX CAROTID ULTRASOUND CLINICAL INFORMATION:SYNCOPE EPISODE Carotid bifurcations: Normal Vertebrals: Antegrade bilaterally RCCA: 74 cm/s LCCA: 63 cm/s DEN: 100 cm/s LICA: 75 cm/s Ratio: 1.4 Ratio: 1.2 IMPRESSION: Patent vasculature No image or Doppler evidence of carotid stenosis. DICTATED BY: CESAR SHEFFIELD DO DATE: 10/28/242120 ELECTRONICALLY SIGNED BY: CESAR SHEFFIELD DO DATE: 10/28/242126 PLAN Admit to PCCU Cardiac panel x3 q.6 hours Telemetry monitoring Ultrasound of the carotids bilaterally to rule out carotid stenosis Resume home meds once available Banana bag with multivitamins Thiamine 200 milligrams IV b.i.d. Folic acid 1 milligram IV daily CIWA protocol for possible withdrawal DC in a.m. to family if workup negative -Arrange outpatient pulmonology referral for sleep study, PFT and follow-up blu ramirez upon discharge NEURO: Minimize central acting medications as possible. Maintain fall precautions, adequate lighting during the day PULMONARY: Supplemental 02 as needed. Maintain aspiration precautions at all times CARDIOVASCULAR: Follow hemodynamics. Vital signs per facility protocol GI & NUTRITION: Continue with nutritional support. Continue stool softeners and laxatives as needed. KIDNEYS & ELECTROLYTES: Strict monitoring of intake, output and overall fluid balance. Avoid nephrotoxic medications to the extent possible. Medications to be dosed according to renal function. Monitor electrolytes and replace as needed ENDOCRINE: Maintain blood glucose between 100-180 at all times. Hypoglycemia protocol in place INFECTIOUS DISEASE: Trend temperature, WBC and procalcitonin level Follow cultures, deescalate antibiotics as soon as possible. Panculture if new onset fever ONCOLOGY/HEMATOLOGY/COAGULATION: Monitor for s/s of bleeding Monitor hemoglobin, coagulation studies as needed SKIN: Pressure ulcer prevention per facility protocol Specialty mattress ORTHO/REHAB: Continue PT/OT Prophylaxis: Continue GI and DVT prophylaxis Code Status: Full Resuscitation Disposition: TBD Other: Total patient care time exceeds 35 minutes excluding all procedures. PHUONG BRADLEY [facility] Oct 28, 2024 15:20
[2024-10-28] MEDS ORDERED: AMLO-258 PO (16:01)
[2024-10-28] MEDS ORDERED: LOSA100T59 PO (16:01)
[2024-10-28] MEDS ORDERED: SEMA1PEN3 SQ (16:01)
[2024-10-28] MEDS ORDERED: METF-446 PO (16:01)
[2024-10-28] MEDS ORDERED: LOVA20TA3 PO (16:01)
[2024-10-28] MEDS ORDERED: LEVO50CA4 PO (16:01)
[2024-10-28] MEDS ORDERED: GABA-529 PO (16:01)
[2024-10-28] MEDS: acetaMINOPHEN 325 MG TAB PO PRN (16:08)
[2024-10-28 16:36] VITALS: BP 139/81; PULSE 77; RESP 18; TEMP 97.6
[2024-10-28] MEDS: INSULIN humuLIN R 100 UNIT/ML 3ML SQ SCH (16:39)
[2024-10-28 19:55] VITALS: BP 144/78; PULSE 75; RESP 18; TEMP 98.3
[2024-10-28 20:10] VITALS: O2SAT 97
[2024-10-28] MEDS: THIAMINE HCL 100 MG/ML 2ML VIAL IVP SCH (20:11)
--- NOTE | 2024-10-28 21:27 | HMCIMG ---
CAROTID ULTRASOUND CLINICAL INFORMATION:SYNCOPE EPISODE Carotid bifurcations: Normal Vertebrals: Antegrade bilaterally RCCA: 74 cm/s LCCA: 63 cm/s DEN: 100 cm/s LICA: 75 cm/s Ratio: 1.4 Ratio: 1.2 IMPRESSION: Patent vasculature No image or Doppler evidence of carotid stenosis.
[2024-10-28 23:46] VITALS: BP 123/57; PULSE 70; RESP 18; TEMP 98.2
[2024-10-29] VITALS (9 sets, daily range): BP systolic 114–162; BP diastolic 64–83; PULSE 52–79; RESP 18–20; TEMP 97.9–98.7; O2SAT 96–97
[2024-10-29 04:45] LABS: BASOPHILS # (AUTO) 0.05 K/uL (0.00-0.20); BASOPHILS % (AUTO) 0.5 % (0.0-5.0); EOSINOPHILS # (AUTO) 0.19 K/uL (0.00-0.70); EOSINOPHILS % (AUTO) 2.1 % (0.0-8.0); HEMATOCRIT 39.9 % (42-54); IMMATURE GRANULOCYTE ABSOLUTE 0.04 K/uL (0-1); LYMPHOCYTES # (AUTO) 2.1 K/uL (1.0-4.8); LYMPHOCYTES % (AUTO) 23.2 % (21.0-51.0); MEAN CORPUSCULAR HEMOGLOBIN 30.3 pg (27.0-33.0); MEAN CORPUSCULAR HGB CONC 34.6 g/dL (32.0-36.0); MEAN CORPUSCULAR VOLUME 87.7 fL (79-99); MONOCYTES # (AUTO) 0.7 K/uL (0.1-1.0); MONOCYTES % (AUTO) 8.1 % (3.0-13.0); NEUTROPHILS % (AUTO) 65.7 % (40.0-77.0); PLATELET COUNT (AUTO) 146 K/uL (130-400); RED BLOOD CELL COUNT(AUTO) 4.55 MIL/uL (4.50-6.20); RED CELL DISTRIBUTION WIDTH 12.2 % (11.0-15.5); WHITE BLOOD COUNT (AUTO) 9.2 K/uL (4.8-10.8)
[2024-10-29 05:18] LABS: MAGNESIUM 1.5 mg/dL (1.80-2.40); PHOSPHORUS 3.5 mg/dL (2.5-4.9); POTASSIUM 3.8 mmol/L (3.5-5.1); THYROID STIMULATING HORMONE 1.8 uIU/mL (0.36-3.74)
[2024-10-29 05:20] LABS: HEMOGLOBIN A1C 10.4 % (4.0-6.0)
[2024-10-29 05:40] LABS: B-TYPE NATRIURETIC PEPTIDE 6 pg/mL (0-100)
[2024-10-29] MEDS: PoTASSium chloRIDE 20MEQ ER 20 MEQ ERTAB PO PRN (06:15)
[2024-10-29] MEDS: levoTHYROxine 50 MCG TABLET PO SCH (06:15)
[2024-10-29] MEDS: MAGNESIUM 2GM PREMIX 50ML 50 ML IV SCH (06:16)
[2024-10-29] MEDS ORDERED: PoTASSium chloRIDE 10MEQ/100ML 100 ML IV PRN (06:30)
[2024-10-29] MEDS ORDERED: PoTASSium chl 10% ELIXIR 20MEQ 20 MEQ/15 ML UDCUP PO PRN (06:30)
[2024-10-29] MEDS: LoSARTan 100 MG TABLET PO SCH (08:25)
[2024-10-29] MEDS: amLODIPine 5 MG TAB PO SCH (08:25)
[2024-10-29] MEDS: GABApentin 100 MG CAPSULE PO SCH (08:25)
[2024-10-29] MEDS: metFORmin HCL 500 MG TABLET PO SCH (08:25)
--- NOTE | 2024-10-29 10:23 | HMCIMG ---
CHEST 1VW REASON: hypoxic resp failure COMPARISON: 10/28/2024 FINDINGS: Single view of the chest was obtained. Lungs are clear. Heart size is normal. There is no pulmonary vascular congestion. Mediastinum and bony thorax appear unremarkable. IMPRESSION: 1. Normal single view chest x-ray.
--- NOTE | 2024-10-29 11:01 | PN ---
[facility] PROGRESS NOTE Date Patient Seen: Oct 29, 2024 Time of Visit: 11:01 Supervising Physician: Reece Schulz MD Primary Care Physician: Dr Jackie Vidal MD Outpatient Specialists: [ Inpatient Consults: [None PROBLEM LIST: Alcohol intoxication, POA ETOH of 250, resolved Fall POA ( syncope episode) D-Dimer elevated w/ wells Score 4.5 pending DVT and PE rule out Hyperglycemia in the presence of type 2 diabetes mellitus, POA Hypomagnesemia, POA Essential hypertension, POA Hyperlipidemia, POA Obesity BMI of 32 Suspected undiagnosed and untreated PAIGE, Stop BANG score 5 (High), Serum Co2 30 Smoker INTERVAL HISTORY: This is a 74-year-old obese male with a past medical history of type 2 diabetes mellitus, hyperlipidemia, hypertension who presented to the emergency department for altered mental status and fall. As per patient's he was heavily drinking due to the end of the year and according to family they found him down on the floor. They reported patient's breathing was abnormal and CPR was started briefly per family member he is a anything he was breathing. On arrival to the emergency department patient was altered but as per ED physician he was breathing and airway was protected. He was found to be slurring his words and was found to be clinically intoxicated per ED physician. 10/29- No major over night events. Patient denies any chest pain palpitation or shortness of the breath. D-dimer elevated. Due to concerns from pt and family that he has been complaining of occasional SOB and reports of syncope w/ trouble breathing on POA will have to rule out PE and DVT. 2D Echo has been ordered and pending the results. Otherwise magnesium was 1.5 covered per protocol. If workup negative in AM may be discharged. REVIEW OF SYSTEMS: 12 point ROS reviewed with patient. Pertinent positives mentioned above. Otherw ise negative. PHYSICAL EXAM: GENERAL: alert, weak, awake oriented x 3 HEENT: EOMI, Sclera non icteric, moist mucosa NECK: Supple, no JVD, trachea midline LUNGS: Clear breath sounds bilaterally. No wheezes HEART: Regular rate and rhythm. Normal S1 and S2, without murmurs ABD: Abdomen soft, nontender. Bowel sounds present EXT: No clubbing cyanosis or edema NEURO: Alert and oriented to person, follows commands Vital Signs (last 8hr) Date Time Temp Pulse Resp B/P (MAP) Pulse Ox O2 Delivery O2 Flow Rate FiO2 10/29/24 08:30 96 Room Air* 0 21 10/29/24 08:17 98.4 66 18 119/83 96 Room Air 10/29/24 04:37 98.8 67 18 162/64 97 Room Air LABS: Hematology Labs: Test 10/29/24 04:28 Range/Units White Blood Count 9.2 # 4.8-10.8 K/uL Red Blood Count 4.55 4.50-6.20 MIL/uL Hemoglobin 13.8 L 14.0-18.0 g/dL Hematocrit 39.9 L 42-54 % Mean Corpuscular Volume 87.7 79-99 fL Mean Corpuscular Hemoglobin 30.3 27.0-33.0 pg Mean Corpuscular Hemoglobin Concent 34.6 32.0-36.0 g/dL Red Cell Distribution Width 12.2 11.0-15.5 % Platelet Count 146 130-400 K/uL Mean Platelet Volume 11.6 H 7.5-10.5 fL Immature Granulocyte % (Auto) 0.4 0-1 % Neutrophils (%) (Auto) 65.7 40.0-77.0 % Lymphocytes (%) (Auto) 23.2 21.0-51.0 % Monocytes (%) (Auto) 8.1 3.0-13.0 % Eosinophils (%) (Auto) 2.1 0.0-8.0 % Basophils (%) (Auto) 0.5 0.0-5.0 % Neutrophils # (Auto) 6.0 1.8-7.7 K/uL Lymphocytes # (Auto) 2.1 1.0-4.8 K/uL Monocytes # (Auto) 0.7 0.1-1.0 K/uL Eosinophils # (Auto) 0.19 0.00-0.70 K/uL Basophils # (Auto) 0.05 0.00-0.20 K/uL Absolute Immature Granulocyte (auto 0.04 0-1 K/uL Nucleated Red Blood Cells 0.0 0.0-0.19 % Chemistry Labs: Test 10/29/24 06:22 10/29/24 04:28 10/28/24 20:38 10/28/24 08:56 Range/Units Whole Blood Glucose 157 H 70-110 MG/DL Sodium Level 141 136-145 mmol/L Potassium Level 3.8 3.5-5.1 mmol/L Chloride Level 104 101-111 mmol/L Carbon Dioxide Level 28 21-32 mmol/L Blood Urea Nitrogen 12 7-18 mg/dL Creatinine 1.0 0.5-1.3 mg/dL Glomerular Filtration Rate Calc 80 >90 mL/min Random Glucose 141 H 70-105 mg/dL Hemoglobin A1c 10.4 H 4.0-6.0 % Estimated Average Glucose (eAG) 252 H 70-126 mg/dL Total Calcium 8.2 L 8.5-10.1 mg/dL Phosphorus Level 3.5 2.5-4.9 mg/dL Magnesium Level 1.50 L 1.80-2.40 mg/dL B-Type Natriuretic Peptide 6 0-100 pg/mL Thyroid Stimulating Hormone (TSH) 1.80 0.36-3.74 uIU/mL Total Creatine Kinase 122 21-232 U/L Troponin I High Sensitivity 4.4 4-75 ng/L Total Bilirubin 0.4 0.2-1.0 mg/dL Aspartate Amino Transf (AST/SGOT) 28 10-37 U/L Alanine Aminotransferase (ALT/SGPT) 29 12-78 U/L Alkaline Phosphatase 133 50-136 U/L Total Protein 7.2 6.0-8.3 g/dL Albumin 3.5 3.5-5.0 g/dL Coagulation Labs: Test 10/29/24 04:28 10/28/24 04:16 Range/Units D-Dimer Quantitative (PE/DVT) 683 *H 0-500 ng/mL Prothrombin Time 10.2 9.6-11.6 SEC Prothromb Time International Ratio <= 0.93 0.85-1.15 DIAGNOSTICS / RADIOLOGY RESULTS: Signed PATIENT: FLAVIA RAMIREZ SR MR#: [id number] : 1950 SEX: M AGE: 74 LOCATION: 2AH ORDER 99 STATUS: ADM IN REPORT#: [id number] SERVICE 0855 REASON: hypoxic resp failure ORDERING PHYSICIAN: PHUONG BRADLEY PROCEDURE: CXR1VW - CHEST 1VW CHEST 1VW REASON: hypoxic resp failure COMPARISON: 10/28/2024 FINDINGS: Single view of the chest was obtained. Lungs are clear. Heart size is normal. There is no pulmonary vascular congestion. Mediastinum and bony thorax appear unremarkable. IMPRESSION: 1. Normal single view chest x-ray. DICTATED BY: TRACEY SANTOS MD DATE: 10/29/24 1013 ELECTRONICALLY SIGNED BY: TRACEY SANTOS MD DATE: 10/29/24 1023 PLAN Cardiac panel x3 q.6 hours negative Telemetry monitoring Ultrasound of the carotids bilaterally to rule out carotid stenosis Resume home meds once available Banana bag with multivitamins Thiamine 300 milligrams IV b.i.d. Folic acid 1 milligram IV daily CIWA protocol for possible withdrawal D Dimer elevated and suspicious history of brief CPR given APPLICATION DEVELOPMENT SPECIALIST due to syncope and sob will rule out PE, DVT, and 2 D echo pending. DC in a.m. to family if workup negative -Arrange outpatient pulmonology referral for sleep study, PFT and follow-up management upon discharge NEURO: Minimize central acting medications as possible. Maintain fall precautions, adequate lighting during the day PULMONARY: Supplemental 02 as needed. Maintain aspiration precautions at all times CARDIOVASCULAR: Follow hemodynamics. Vital signs per facility protocol GI & NUTRITION: Continue with nutritional support. Continue stool softeners and laxatives as needed. KIDNEYS & ELECTROLYTES: Strict monitoring of intake, output and overall fluid balance. Avoid nephrotoxic medications to the extent possible. Medications to be dosed according to renal function. Monitor electrolytes and replace as needed ENDOCRINE: Maintain blood glucose between 100-180 at all times. Hypoglycemia protocol in place INFECTIOUS DISEASE: Trend temperature, WBC and procalcitonin level Follow cultures, deescalate antibiotics as soon as possible. Panculture if new onset fever ONCOLOGY/HEMATOLOGY/COAGULATION: Monitor for s/s of bleeding Monitor hemoglobin, coagulation studies as needed SKIN: Pressure ulcer prevention per facility protocol Specialty mattress ORTHO/REHAB: Continue PT/OT Prophylaxis: Continue GI and DVT prophylaxis Code Status: Full Resuscitation Disposition: TBD Other: Total patient care time exceeds 35 minutes excluding all procedures. PHUONG BRADLEY Oct 29, 2024 11:01
--- NOTE | 2024-10-29 12:23 | HMCIMG ---
US VENOUS DOPPLER BILATERAL REASON: rule out DVT COMPARISON: None Technique: Bilateral venous doppler ultrasound was performed with spectral analysis and color flow imaging technique. FINDINGS: There is a normal appearance of the common femoral, deep femoral, the profunda femoris and popliteal veins. Proximal calf veins appear normal as well. There is normal response to compression and augmentation. There is no evidence of deep venous thrombosis. IMPRESSION: Normal bilateral lower extremity venous Doppler ultrasound.
--- NOTE | 2024-10-29 12:27 | NUR ---
DCP Pt awake, alert, oriented X3 lives with spouse Kinsey Hendricks [phone]. Pt is independent and able to perform ADLs. Anticipates discharge is for home. Addendum: 10/29/24 at 1230 by TOM FERRARA RN CM Amended: Links added.
--- NOTE | 2024-10-29 13:55 | NUR ---
WALLY MOON TO CALL BACK IN REGARDS TO CTA
[2024-10-29] MEDS ORDERED: IOHEXOL-350 75 ML VIAL IV ONE (14:34)
[2024-10-29] MEDS ORDERED: IOHEXOL 350 MG/ML 100ML INFUS..BTL IV ONE (14:54)
[2024-10-29 15:22] LABS: COVID19 (SARS ANTIGEN RAPID) PRESUMPTIVE NEGATIVE (NEGATIVE); INFLUENZA TYPE A Negative For Type A (NEGATIVE); INFLUENZA TYPE B Negative For Type B (NEGATIVE)
--- NOTE | 2024-10-29 15:32 | HMCIMG ---
CT CHEST PE PROTOCOL [facility] CONT REASON: rule out PE TECHNIQUE: Thin axial images through the chest were obtained during bolus intravenous administration of 100 ml of Omnipaque 350. Sagittal and coronal reconstruction images were performed. FINDINGS: The main pulmonary arteries and their first and second order branches have normal caliber and enhancement throughout. No intraluminal filling defect is identified. Thoracic aorta is unremarkable. Heart size is within normal limits. No pleural or pericardial effusion is identified. Lungs are clear. No pneumothorax is noted. There is no mediastinal or axillary lymphadenopathy. Limited evaluation of the upper abdomen is unremarkable. IMPRESSION: 1. Negative exam, no evidence evidence of pulmonary embolism or aortic dissection. CT was performed with one or more following dose reduction techniques: automated exposure control, adjustment of the mA and kv according to patient's size, or use of a iterative reconstruction technique.
[2024-10-29] MEDS: atorVAStatin 10 MG TABLET PO SCH (20:35)
[2024-10-30 03:20] VITALS: BP 149/76; PULSE 64; RESP 20; TEMP 98.7
[2024-10-30 07:45] VITALS: BP 132/83; PULSE 70; RESP 16; TEMP 98.2
[2024-10-30 08:00] VITALS: O2SAT 96
[2024-10-30] MEDS: MAGNESIUM OXIDE 400 MG TABLET PO SCH (09:24)
--- NOTE | 2024-10-30 11:54 | HMCSR ---
APPROVED REPORT EXAM: Two-dimensional and M-mode echocardiogram with Doppler and color Doppler. INDICATION ICD: Syncope 2D Dimensions RVDd3.8 cmLVEF(%)51.1 (>50%)LVED Vol(simp.)107.0 mL IVSd0.9 (0.7-1.1cm)FS(%)26 %LVES Vol(simp.)47.7 mL LVDd3.9 (3.8-5.6cm)LA (2D)3.2 (1.6-4.0cm)LVEF(%, simp.)55 % PWd1.3 (0.7-1.1cm)Ao Root(2D)3.2 (2.0-3.7cm)LA ESV INDEX (4CH)28.20 mL/m2 IVSs1.3 cmLA ESV INDEX (2CH)34.80 mL/m2 LVDs2.9 (2.5-4.0cm)LA ESV INDEX (BP)30.80 mL/m2 PWs1.6 cm M-Mode Dimensions EPSS0.7 cm LA (MM)3.3 (1.6-4.0cm) Ao Root(MM)3.1 (2.0-3.7cm) Aortic Valve AoV VTI0.4 mAo Mean GR7.0 mmHgLVOT VTI0.19 m Mitral Valve MV E Vmax82.9 cm/sDECEL Lllo296 ms MV A Gpvh810.4 cm/sP 1/2 T73 ms E/A ratio0.8MVA (PHT)3.0 cm2 TDI E/E' Uztjix08.7E/E' Hdqjvez39.0 Medial E' Peak V4.00 cm/sLateral E' Peak V6.40 cm/s Left Ventricle The left ventricle structure and function is normal. There is normal LV segmental wall motion. There is normal left ventricular wall thickness. LVEF is 50-55%. Stage III diastolic dysfunction. Right Ventricle The right ventricle is normal size. The right ventricular systolic function is normal. Atria The left atrium size is normal. The right atrium is mildly dilated. Aortic Valve Aortic valve is trileaflet and opens well. Left coronary cusp is calcified. No aortic regurgitation i s present. There is no aortic valvular stenosis. Mitral Valve The mitral valve is normal in structure and function. There is no mitral valve regurgitation noted. T here is no mitral valve stenosis. Tricuspid Valve The tricuspid valve is normal in structure and function. There is no tricuspid valve regurgitation no missy. Pulmonic Valve The pulmonary valve is normal in structure and function. There is no pulmonic valvular regurgitation. Great Vessels The aortic root is normal in size. The IVC is normal in size and collapses >50% with inspiration. Pericardium No pericardial effusion. Conclusion LVEF is 50-55%. Stage III diastolic dysfunction.
[2024-10-30 12:04] VITALS: BP 120/57; PULSE 79; RESP 16; TEMP 98.3
[2024-10-30] MEDS ORDERED: METO-408 PO (13:04)
[2024-10-30] MEDS ORDERED: ASPI-1197 PO (13:05)
--- NOTE | 2024-10-30 13:05 | NUR ---
IM LETTER PER REPORT, PATIENT IS A POSSIBLE DISCHARGE. DISCUSSED IM LETTER FROM MED[employer]ARE. PATIENT SIGNED AND THIS CM PROVIDED COPY. POSSIBLE FOR DC TODAY. PATIENT VERBALIZED READINESS TO DISCHARGE. Addendum: 10/30/24 at 1307 by PAN MURO Amended: Links added.
[2024-10-30 13:28] VITALS: BP 133/80; PULSE 102
--- NOTE | 2024-10-30 14:05 | NUR ---
DISCHARGE INSTRUCTIONS DISCHARGE INSTRUCTIONS WERE GIVEN TO THIS PATIENT AND FAMILY AT BEDSIDE. TELE NILESH WAS REMOVED AND RETURN TO TELEMETRY ROOM. PIVs TO LEFT AND RIGHT ANTECUBITALS WERE REMOVED WITH CATHETERS INTACT. DRY DRESSING WAS APPLIED TO BOTH SITES. PATIENT DENIES ANY PAIN NOR IS IN ANY RESPIRATORY DISTRESS. ALL BELONGINGS WERE ACCOUNTED FOR AND TAKEN WITH. PATIENT WAS TAKEN DOWN TO PRIVATE VEHICLE VIA WHEEL CHAIR. EDUCATION WAS PROVIDED ON NEW MEDICATIONS AND FAMILY AND PATIENT VOICED UNDERSTANDING.
--- NOTE | 2024-10-31 01:41 | DS ---
[facility] DISCHARGE SUMMARY Date Patient Seen: Oct 30, 2024 Time of Visit: 12:00 Supervising Physician: Reece Schulz MD Primary Care Physician: Dr Jackie Vidal MD Outpatient Specialists: [ Inpatient Consults: [None PROBLEM LIST: New Dx of Stage III Diastolic Heart Failure not on exacerbation POA Alcohol intoxication, POA ETOH of 250, resolved Fall POA ( syncope episode), 2/2 etoh abuse D-Dimer negative for DVT and PE Hyperglycemia in the presence of type 2 diabetes mellitus, POA Hypomagnesemia, POA Essential hypertension, POA Hyperlipidemia, POA Obesity BMI of 32 Suspected undiagnosed and untreated PAIGE, Stop BANG score 5 (High), Serum Co2 30 Smoker Etoh use HOSPITAL COURSE: HPI This is a 74-year-old obese male with a past medical history of type 2 diabetes mellitus, hyperlipidemia, hypertension who presented to the emergency department for altered mental status and fall. As per patient's he was heavily drinking due to the end of the year and according to family they found him down on the floor. They reported patient's breathing was abnormal and CPR was started briefly per family member he is a anything he was breathing. On arrival to the emergency department patient was altered but as per ED physician he was breathing and airway was protected. He was found to be slurring his words and was found to be clinically intoxicated per ED physician. Initial vital signs in the ED were temperature 97 heart rate of 76 respiratory rate of 20 blood pressure 156/73 saturating 98 percent on room air. On laboratory CBC was unremarkable. Cardiac enzymes were negative x3. Chemistry unremarkable other than elevated glucose of 300 milligrams/deciliter magnesium 1.7. UDS was negative. serum alcohol level was 250. Urinalysis showed a glucose of greater than 1000 and WBCs of [address] of the cervical spine showed no evidence of fracture subluxation and C-collar was removed per ED physician. On chest x-ray there is no radiographic evidence of any acute cardiopulmonary process. Head CT was found to be negative for intracranial bleed with chronic white matter ischemic changes, mild brain atrophy and arteriosclerotic disease as described without acute component. Carotid ultrasound there is a patent vasculature and no Doppler evidence of carotid stenosis. Per ED physician: will like patient to be admitted under observation on tele floor and if workup is negative likely discharge in the morning. On assessment patient was awake alert and oriented x3. was at the bedside only complaint is that of the headache. He denies any alcohol abuse. He does admit to occasional drinking only but last night he was celebrating the new year and had too much to drink as per patient. He denies any shortness of breath chest pain or palpitations. Patient denies any chills fever or urinary frequency. He reports he takes a pill for his diabetes which is metformin 1000 milligrams p.o. b.i.d. and levothyroxine 50 micrograms p.o. q.a.m.. Family member pending to bring the rest of his medications and we will resume once reconciled. 10/29- No major over night events. Patient denies any chest pain palpitation or shortness of the breath. D-dimer elevated. Due to concerns from pt and family that he has been complaining of occasional SOB and reports of syncope w/ trouble breathing on POA will have to rule out PE and DVT. 2D Echo has been ordered and pending the results. Otherwise magnesium was 1.5 covered per protocol. If workup negative in AM may be discharged. 10/30- Pt is awake alert and oriented x 3 . and daughter at the bedside. discussed 2D echo finding of stage 3 diastolic heart failures. discussed the possible causes complication and importance of medication regimen. Pt agrees with following up with PCP in 1- 3 days and ask for cardiology referral for CHF management. Pt in agreement. Pt also agrees to follow up with pulmonology Dr Michael Astudillo for a sleep study due to high probability of PAIGE according to his STOP BANG score. CTA of the chest is neg for DVT neither does he have dvt on BLE us doppler He agrees to start on low dose metoprolol and baby asa. He is already on losartan for BP control. Otherwise pt stable for discharge. Daughters and in agreement w/ plan. I answered all their questions and aurora t over medications with them. CHRONIC PROBLEMS: continue previous management per PCP unless otherwise in dicated PROCEDURES: as mentioned above PATIENT: FLAVIA RAMIREZ SR MR#: [id number] : 1950 SEX: M AGE: 74 LOCATION: [facility] ORDER 1550 STATUS: ADM IN REPORT#: [id number] SERVICE 1551 REASON: SYNCOPE EPISODE ORDERING PHYSICIAN: PHUONG BRADLEY PROCEDURE: ECHO CMP - ECHO 2-D COMPLETE APPROVED REPORT EXAM: Two-dimensional and M-mode echocardiogram with Doppler and color Doppler. INDICATION ICD: Syncope 2D Dimensions RVDd 3.8 cm LVEF(%) 51.1 (>50%) LVED Vol(simp.) 107.0 mL IVSd 0.9 (0.7-1.1cm) FS(%) 26 % LVES Vol(simp.) 47.7 mL LVDd 3.9 (3.8-5.6cm) LA (2D) 3.2 (1.6-4.0cm) LVEF(%, simp.) 55 % PWd 1.3 (0.7-1.1cm) Ao Root(2D) 3.2 (2.0-3.7cm) LA ESV INDEX (4CH) 28.20 mL/m2 IVSs 1.3 cm LA ESV INDEX (2CH) 34.80 mL/m2 LVDs 2.9 (2.5-4.0cm) LA ESV INDEX (BP) 30.80 mL/m2 PWs 1.6 cm M-Mode Dimensions EPSS 0.7 cm LA (MM) 3.3 (1.6-4.0cm) Ao Root(MM) 3.1 (2.0-3.7cm) Aortic Valve AoV VTI 0.4 m Ao Mean GR 7.0 mmHg LVOT VTI 0.19 m Mitral Valve MV E Vmax 82.9 cm/s DECEL Time 229 ms MV A Vmax 100.4 cm/s P 1/2 T 73 ms E/A ratio 0.8 MVA (PHT) 3.0 cm2 TDI E/E' Medial 20.7 E/E' Lateral 13.0 Medial E' Peak V 4.00 cm/s Lateral E' Peak V 6.40 cm/s Left Ventricle The left ventricle structure and function is normal. There is normal LV segmental wall motion. There is normal left ventricular wall thickness. LVEF is 50-55%. Stage III diastolic dysfunction. Right Ventricle The right ventricle is normal size. The right ventricular systolic function is normal. Atria The left atrium size is normal. The right atrium is mildly dilated. Aortic Valve Aortic valve is trileaflet and opens well. Left coronary cusp is calcified. No aortic regurgitation is present. There is no aortic valvular stenosis. Mitral Valve The mitral valve is normal in structure and function. There is no mitral valve regurgitation noted. There is no mitral valve stenosis. Tricuspid Valve The tricuspid valve is normal in structure and function. There is no tricuspid valve regurgitation noted. Pulmonic Valve The pulmonary valve is normal in structure and function. There is no pulmonic valvular regurgitation. Great Vessels The aortic root is normal in size. The IVC is normal in size and collapses >50% with inspiration. Pericardium No pericardial effusion. Conclusion LVEF is 50-55%. Stage III diastolic dysfunction. DICTATED BY: MATTHIEU GARRETT MD DATE: 10/30/24 0800 ELECTRONICALLY SIGNED BY: MATTHIEU GARRETT MD DATE: 10/30/24 1154 PATIENT: FLAVIA RAMIREZ SR MR#: [id number] : 1950 SEX: M AGE: 74 LOCATION: [facility] ORDER 1100 STATUS: [facility] REPORT#: [id number] SERVICE 1059 REASON: rule out DVT ORDERING PHYSICIAN: PHUONG BRADLEY PROCEDURE: VENOUS MARISEL - US VENOUS DOPPLER BILATERAL US VENOUS DOPPLER BILATERAL REASON: rule out DVT COMPARISON: None Technique: Bilateral venous doppler ultrasound was performed with spectral analysis and color flow imaging technique. FINDINGS: There is a normal appearance of the common femoral, deep femoral, the profunda femoris and popliteal veins. Proximal calf veins appear normal as well. There is normal response to compression and augmentation. There is no evidence of deep venous thrombosis. IMPRESSION: Normal bilateral lower extremity venous Doppler ultrasound. DICTATED BY: TRACEY SANTOS MD DATE: 10/29/24 1220 ELECTRONICALLY SIGNED BY: TRACEY SANTOS MD DATE: 10/29/24 1223 PATIENT: FALVIA RAMIREZ SR MR#: [id number] : 1950 SEX: M AGE: 74 LOCATION: [facility] ORDER 1100 STATUS: ADM IN REPORT#: [id number] SERVICE 1059 REASON: rule out PE ORDERING PHYSICIAN: PHUONG BRADLEY PROCEDURE: CHES PE - CT CHEST PE PROTOCOL WWO CONT CT CHEST PE PROTOCOL WWO CONT REASON: rule out PE TECHNIQUE: Thin axial images through the chest were obtained during bolus intravenous administration of 100 ml of Omnipaque 350. Sagittal and coronal reconstruction images were performed. FINDINGS: The main pulmonary arteries and their first and second order branches have normal caliber and enhancement throughout. No intraluminal filling defect is identified. Thoracic aorta is unremarkable. Heart size is within normal limits. No pleural or pericardial effusion is identified. Lungs are clear. No pneumothorax is noted. There is no mediastinal or axillary lymphadenopathy. Limited evaluation of the upper abdomen is unremarkable. IMPRESSION: 1. Negative exam, no evidence evidence of pulmonary embolism or aortic dissection. CT was performed with one or more following dose reduction techniques: automated exposure control, adjustment of the mA and kv according to patient's size, or use of a iterative reconstruction technique. DICTATED BY: TRACEY SANTOS MD DATE: 10/29/24 1521 ELECTRONICALLY SIGNED BY: TRACEY SANTOS MD DATE: 10/29/24 1532 Signed PATIENT: FLAVIA RAMIREZ SR MR#: [id number] : 1950 SEX: M AGE: 74 LOCATION: [facility] ORDER 230 STATUS: ADM IN REPORT#: [id number] SERVICE 0829 REASON: hypoxic resp failure ORDERING PHYSICIAN: PHUONG BRADLEY PROCEDURE: CXR1VW - CHEST 1VW CHEST 1VW REASON: hypoxic resp failure COMPARISON: 10/28/2024 FINDINGS: Single view of the chest was obtained. Lungs are clear. Heart size is normal. There is no pulmonary vascular congestion. Mediastinum and bony thorax appear unremarkable. IMPRESSION: 1. Normal single view chest x-ray. DICTATED BY: RTACEY SANTOS MD DATE: 10/29/24 1013 ELECTRONICALLY SIGNED BY: TRACEY SANTOS MD DATE: 10/29/24 1023 IMAGING REPORT Signed PATIENT: FLAVIA RAMIREZ SR MR#: [id number] : 1950 SEX: M AGE: 74 LOCATION: [facility] ORDER 1531 STATUS: ADM IN REPORT#: [id number] SERVICE 1530 REASON: SYNCOPE EPISODE ORDERING PHYSICIAN: PHUONG BRADLEY PROCEDURE: CAROTID - US CAROTID DUPLEX CAROTID ULTRASOUND CLINICAL INFORMATION:SYNCOPE EPISODE Carotid bifurcations: Normal Vertebrals: Antegrade bilaterally RCCA: 74 cm/s LCCA: 63 cm/s DEN: 100 cm/s LICA: 75 cm/s Ratio: 1.4 Ratio: 1.2 IMPRESSION: Patent vasculature No image or Doppler evidence of carotid stenosis. DICTATED BY: CESAR SHEFFIELD DO DATE: 10/28/242120 ELECTRONICALLY SIGNED BY: CESAR SHEFFIELD DO DATE: 10/28/242126 IMAGING REPORT Signed PATIENT: FLAVIA RAMIREZ SR MR#: [id number] : 1950 SEX: M AGE: 74 LOCATION: [facility] ORDER 0421 STATUS: REG ER REPORT#: [id number] SERVICE 0418 REASON: head injury ORDERING PHYSICIAN: THAI JIMENEZ DO PROCEDURE: HEAD WO - CT HEAD/BRAIN W/O CONTRAST CT HEAD WITHOUT CONTRAST INDICATION: Trauma TECHNIQUE: Noncontrast axial helical CT images from the vertex through the skull base using 5 mm slice thickness without contrast material. Coronal and sagittal reconstructions were also included. Dose reduction techniques was used using integrated, automated and adaptive dose reduction exposure control. CT was performed with one or more of the following dose reduction techniques: Automated exposure control, adjustment of the mA and/or kV according to patient size, or use of iterative reconstruction technique. COMPARISON: None FINDINGS: Scattered and coalescent subcortical and periventricular white matter low attenuating areas likely represent residual of chronic small vessel arteriopathy and/or remote vascular insult. Generalized mild cerebral cortical atrophy is present.. No evidence for abnormal extra-axial fluid collections or masses. The ventricles and sulci are normal in size and configuration. No evidence for intracranial parenchymal, epidural, or subdural hemorrhage, mass effect or midline shift. The baker-white matter differentiation is well preserved. No secondary evidence to suggest acute ischemia. Mild calcific plaque is present along the muñiz of the cavernous segments of both internal carotid arteries. The brainstem and cerebellum appear normal. The visualized orbits appear unremarkable. Mild right maxillary sinus mucosal thickening. Remainder of the visible paranasal sinuses and mastoid air cells are clear. The calvarium appears normal. IMPRESSION: Chronic white matter ischemic changes, mild brain atrophy, and arteriosclerotic disease as described, without acute component. DICTATED BY: DEVON GARZA MD DATE: 10/28/24821 ELECTRONICALLY SIGNED BY: DEVON GARZA MD DATE: 10/28/24827 PATIENT: FLAVIA RAMIREZ SR MR#: [id number] : 1950 SEX: M AGE: 74 LOCATION: ED ORDER 0 STATUS: [facility] REPORT#: [id number] SERVICE 7 REASON: chest pain ORDERING PHYSICIAN: THAI JIMENEZ DO PROCEDURE: CXR1VW - CHEST 1VW PORTABLE CHEST RADIOGRAPH INDICATION: chest pain COMPARISON: 02/07/2019 FINDINGS: ict project manager leads overlie the field of view. Heart size is normal. The pulmonary vascularity and yg appear normal. No abnormal pulmonary parenchymal opacity or consolidation identified. No significant pleural effusion noted. No pneumothorax detected. IMPRESSION: No radiographic evidence for any acute cardiopulmonary process. DICTATED BY: DEVON GARZA MD DATE: 10/28/24820 ELECTRONICALLY SIGNED BY: DEVON GARZA MD DATE: 10/28/24823 Signed PATIENT: FLAVIA RAMIREZ SR MR#: [id number] : 1950 SEX: M AGE: 74 LOCATION: [facility] ORDER 0 STATUS: REG [facility] REPORT#: [id number] SERVICE 7 REASON: head injury ORDERING PHYSICIAN: THAI JIMENEZ DO PROCEDURE: C SPIN WO - CT CERVICAL SPINE W/O CONTRAST CT CERVICAL SPINE WITHOUT CONTRAST INDICATION: Neck pain TECHNIQUE: Contiguous axial computed tomography imaging using 2 mm slice thickness through the cervical spine. Reconstructions in the sagittal and coronal planes. CT was performed with one or more of the following dose reduction techniques: Automated exposure control, adjustment of the mA and/or kV according to patient size, or use of iterative reconstruction technique. COMPARISON: None. FINDINGS: Straightening of the normal lordosis may be related to overlying muscle spasm, underlying degenerative joint disease and/or patient positioning. Vertebral bodies are normal stature without evidence for compression deformity or fracture. No evidence for subluxation. Multilevel mild to moderate cervical spondylosis. The craniocervical junction appears normal. The atlantoaxial articulation is within normal limits. The dens is intact. The pre- and paravertebral soft tissues appear unremarkable. IMPRESSION: No evidence for fracture or subluxation. DICTATED BY: DEVON GARZA MD DATE: 10/28/24821 ELECTRONICALLY SIGNED BY: DEVON GARZA MD DATE: 10/28/24827 Pt hemodynamically stable and afebrile at time of discharge. PCP notified of patients admission, hospital course and discharge. New Medications: Aspirin (Aspirin) 81 Mg Tab.chew 1 TAB PO DAILY for 30 Days, #30 TAB 0 Refills Metoprolol Succinate (Metoprolol Succinate) 25 Mg Tab.er.24h 0.5 TAB PO DAILY for 30 Days, #30 TAB 0 Refills Continued Medications: Amlodipine Besylate (Amlodipine Besylate) 10 Mg Tablet 10 MG PO DAILY for 30 Days, #30 TAB 0 Refills Gabapentin (Gabapentin) 100 Mg Capsule 100 MG PO DAILY, CAP Levothyroxine Sodium (Levothyroxine) 50 Mcg Capsule 50 MCG PO ACBKFST, CAP Losartan Potassium (Losartan Potassium) 100 Mg Tablet 100 MG PO DAILY, TAB Lovastatin (Lovastatin) 20 Mg Tablet 20 MG PO DAILY, TAB Metformin HCl (Metformin HCl) 1,000 Mg Tablet 1000 MG PO BIDMEALS, TAB Semaglutide (Ozempic) 1 Mg/0.75 Ml (4 Mg/3 Ml) Pen.injctr 1 MG SQ QWEEK for 30 Days, #3 ML 0 Refills PHYSICAL EXAM: GENERAL: alert, weak, awake oriented x 3 HEENT: EOMI, Sclera non icteric, moist mucosa NECK: short neck no JVD, trachea midline LUNGS: Clear breath sounds bilaterally. No wheezes HEART: Regular rate and rhythm. Normal S1 and S2, without murmurs ABD: obese Abdomen soft, nontender. Bowel sounds present EXT: No clubbing cyanosis or edema NEURO: Alert and oriented to person, follows commands FOLLOW-UP: Follow up with primary care physician in 1-3 days. ( Ask for referral to cardiology for stage III diastolic heart failure management) Follow up with Pulmonology Dr Michael Astudillo MD in 1-2 weeks for sleep study and PFT's. RECOMMENDATIONS: See Discharge Instructions This case was seen and discussed with my supervising physician. More than 30 minutes spent on discharge process, including evaluation of the patient, discussion with nursing staff, medication reconciliation and follow-up appointments PHUONG BRADLEY [facility] Oct 31, 2024 01:41
== END 2024-10-30 14:05 | disposition left against medical advice (07) | DRG 638 ==
LOC: EDH 04:12 → EDHIP 08:29 → 2AH 09:15
PROVIDERS: ADMIT Internal Medicine Critical Care Medicine; ATTEND Internal Medicine Critical Care Medicine
DX: E11.65 Type 2 diabetes mellitus with hyperglycemia (principal); I50.30 Unspecified diastolic (congestive) heart failure; F10.129 Alcohol abuse with intoxication, unspecified; Y90.8 Blood alcohol level of 240 mg/100 ml or more; E66.9 Obesity, unspecified; F17.200 Nicotine dependence, unspecified, uncomplicated; I11.0 Hypertensive heart disease with heart failure; Z20.822 Contact with and (suspected) exposure to COVID-19; E83.42 Hypomagnesemia; W18.30XA Fall on same level, unspecified, initial encounter; E78.5 Hyperlipidemia, unspecified; Z68.32 Body mass index [BMI] 32.0-32.9, adult; Z79.899 Other long term (current) drug therapy; Y93.89 Activity, other specified; Y92.89 Other specified places as the place of occurrence of the external cause; Y99.8 Other external cause status
CPT/HCPCS: 36415; 70450; 71045; 71270; 72125; 80048; 80053; 80305; 81001; 82550; 82948; 83036; 83735; 83880; 84100; 84443; 84484; 85025; 85378; 85610; 87426; 87804; 87880; 93005; 93306; 93880; 93970; 99285; G0378; J1815; J3411; J3475; J3490; J7030; Q9967

== ENCOUNTER 2025-03-04 17:51 | Emergency (ER) | payer OTHER, MEDICARE ==
[~2025-03-04] VITALS: Ht 162.6 cm; Wt 79.8 kg
[~2025-03-04 17:51] MED LIST: AMLO-258 PO; ASPI-1197 PO; GABA-529 PO; LEVO50CA5 PO; LOSA100T59 PO; LOVA20TA3 PO; METF-446 PO; METO-408 PO; SEMA1PEN3 SQ
--- NOTE | 2025-03-04 18:02 | EKG ---
[facility] Test Date: 2025-03-04 Test Time: 17:58:41 Pat Name: FLAVIA RAMIREZ Department: ED Room: Gender: M White Washer: 08 : 1950 Requested By: FARHAD RAMIREZ Order Number: [id number] Reading MD: Arik Tran Measurements Intervals [place] Rate: 73 P: -10 [place]: 186 QRS: 26 QRSD: 103 T: 45 QT: 392 QTc: 432 Interpretive Statements Sinus rhythm Low voltage, precordial leads Consider anterior infarct Compared to ECG 10/28/2024 04:14:49 Myocardial infarct finding now present Electronically Signed On 03-06-2025 12:30:54 CDT by Arik Tran Please click the below link to view image of tracing.
[2025-03-04 18:18] LABS: BASOPHILS # (AUTO) 0.08 K/uL (0.00-0.20); BASOPHILS % (AUTO) 0.8 % (0.0-5.0); EOSINOPHILS # (AUTO) 0.45 K/uL (0.00-0.70); EOSINOPHILS % (AUTO) 4.4 % (0.0-8.0); HEMATOCRIT 34.8 % (42-54); IMMATURE GRANULOCYTE ABSOLUTE 0.07 K/uL (0-1); LYMPHOCYTES % (AUTO) 19.7 % (21.0-51.0); MEAN CORPUSCULAR HEMOGLOBIN 30.9 pg (27.0-33.0); MEAN CORPUSCULAR HGB CONC 34.8 g/dL (32.0-36.0); MONOCYTES # (AUTO) 0.7 K/uL (0.1-1.0); MONOCYTES % (AUTO) 6.5 % (3.0-13.0); NEUTROPHILS # (AUTO) 6.9 K/uL (1.8-7.7); NEUTROPHILS % (AUTO) 67.9 % (40.0-77.0); PLATELET COUNT (AUTO) 162 K/uL (130-400); RED BLOOD CELL COUNT(AUTO) 3.91 MIL/uL (4.50-6.20); RED CELL DISTRIBUTION WIDTH 12.6 % (11.0-15.5); WHITE BLOOD COUNT (AUTO) 10.2 K/uL (4.8-10.8)
[2025-03-04 18:25] LABS: POTASSIUM 3.6 mmol/L (3.5-5.1)
[2025-03-04 18:32] LABS: RAPID GROUP A STREP negative (NEGATIVE)
[2025-03-04 18:33] VITALS: TEMP 98.3
[2025-03-04 18:34] LABS: MAGNESIUM 1.5 mg/dL (1.80-2.40)
[2025-03-04 18:36] LABS: SARS-CoV-2, RNA, NAAT NEGATIVE SARS CoV-2 (NEGATIVE)
--- NOTE | 2025-03-04 18:36 | HMCIMG ---
PORTABLE CHEST RADIOGRAPH INDICATION: SOB COMPARISON: 10/29/2024 CTA chest FINDINGS: gambling monitor leads overlie the field of view. Heart size is normal. The pulmonary vascularity and yg appear normal. No abnormal pulmonary parenchymal opacity or consolidation identified. No significant pleural effusion noted. No pneumothorax detected. IMPRESSION: No radiographic evidence for any acute cardiopulmonary process.
[2025-03-04 18:42] LABS: INFLUENZA TYPE A Negative For Type A (NEGATIVE); INFLUENZA TYPE B Negative For Type B (NEGATIVE)
[2025-03-04 18:42] LABS: B-TYPE NATRIURETIC PEPTIDE 16 pg/mL (0-100)
[2025-03-04] MEDS: IpraTROPium/alBUTERol SULFATE 3 ML SOLUTION IH ONE (19:03)
[2025-03-04 19:05] VITALS: PULSE 70; RESP 16
[2025-03-04 19:06] VITALS: PULSE 70; RESP 16; O2SAT 98
[2025-03-04 20:35] VITALS: BP 119/74; PULSE 72; RESP 18; O2SAT 98
[2025-03-04] MEDS: MAGNESIUM OXIDE 400 MG TABLET PO ONE (20:37)
[2025-03-04] MEDS ORDERED: METH4TAB3 PO (20:57)
--- NOTE | 2025-03-04 20:58 | ERN ---
General Chief Complaint: Chest Pain Stated Complaint: CHEST PAIN Time Seen by MD: 17:55 Time Seen by Midlevel: 17:55 Source: patient History of Present Illness Initial Comments The patient is a 74-year-old male presenting to the emergency department with two complaints. Patient reports having a persistent cough for the last two weeks. He was seen by his primary care doctor earlier this week and was prescribed Levaquin for presumed pneumonia. Today he developed some left-sided chest pain so he decided to report to the ER for further evaluation. Denies any other symptoms. Patient is on day two of Levaquin and does report feeling slightly improved. Allergies: Coded Allergies: No Known Drug Allergies (Unverified Allergy, Unknown, 06/26/19) Home Meds Active Scripts Aspirin (Aspirin) 81 Mg Tab.chew, 1 TAB PO DAILY for 30 Days, #30 TAB 0 Refills Prov:PHUONG BRADLEY 10/30/24 Metoprolol Succinate (Metoprolol Succinate) 25 Mg Tab.er.24h, 0.5 TAB PO DAILY for 30 Days, #30 TAB 0 Refills Prov:PHUONG BRADLEY 10/30/24 Reported Medications Amlodipine Besylate (Amlodipine Besylate) 10 Mg Tablet, 10 MG PO DAILY for 30 Days, #30 TAB 0 Refills 10/28/24 Gabapentin (Gabapentin) 100 Mg Capsule, 100 MG PO DAILY, CAP 10/28/24 Levothyroxine Sodium (Levothyroxine) 50 Mcg Capsule, 50 MCG PO ACBKFST, CAP 10/28/24 Losartan Potassium (Losartan Potassium) 100 Mg Tablet, 100 MG PO DAILY, TAB 10/28/24 Lovastatin (Lovastatin) 20 Mg Tablet, 20 MG PO DAILY, TAB 10/28/24 Metformin HCl (Metformin HCl) 1,000 Mg Tablet, 1000 MG PO BIDMEALS, TAB 10/28/24 Semaglutide (Ozempic) 1 Mg/0.75 Ml (4 Mg/3 Ml) Pen.injctr, 1 MG SQ QWEEK for 30 Days, #3 ML 0 Refills 10/28/24 Past Medical History Past Medical History: Diabetes-Type II, High Cholesterol, Hypertension Past Surgical History: Other Surgical History Other: UMBILICAL HERNIA REPAIR ROS Dictation CONSTITUTIONAL: Negative except for HPI HEAD/FACE: Negative except for HPI EENT: Negative except for HPI RESPIRATORY: Negative except for HPI GASTROINTESTINAL/ABDOMINAL: Negative except for HPI GENITOURINARY: Negative except for HPI MUSCULOSKELETAL: Negative except for HPI INTEGUMENTARY: Negative except for HPI NEUROLOGICAL/PSYCH: Negative except for HPI HEMATOLOGIC/LYMPHATIC: Negative except for HPI All Systems Negative, Except as noted above. 13 point review of systems assessed and all negative except for above. Physical Exam Physical Exam Dictation Vital Signs reviewed General Appearance: Alert, oriented x 3, no acute distress, well developed, nourished. Head and Face: non-traumatic. Eyes: PERRL, pink conjunctivas, eyelid no trauma, anterior chamber with arcus senilis. Ears: Pinnas intact and no signs of trauma or erythema ear canals clear and no discharge TM no erythema Nose: No discharge, no bleeding. Oropharynx: Mouth normal, tongue pink, pharynx clear,no erythema, tonsils no exudates, no abscesses noted, mucous membrane moist Neck: Supple, non-tender, no thyromegaly, no masses, no JVD, no bruits Breast:Deferred Chest:No tenderness, no crepitus, no paradoxical movement, no retractions Lungs: Wheezing to left lower lung field, symmetric breath sounds bilaterally Heart: Regular rate, regular rhythm, no murmur, no gallops Vascular: no peripheral edema, Abdomen: Soft, positive bowel sounds, nondistended, no guarding, nontender, no rebound, no masses no hepatomegaly, no splenomegaly, no Foote's sign, no hernias. Rectal: Deferred Genital: Deferred Neurological: Normal speech, motor function intact, sensory function intact Musculoskeletal: Neck nontender, full range of motion, back nontender, full range of motion, Extremities: nontender, full range of motion Skin: Color pink, dry, no turgor, no rash, no lacerations, no abrasions, no contusions. Lymphatic: Deferred Results Laboratory and Microbiology Lab and Micro Result Laboratory Tests Test 03/04/25 18:04 03/04/25 18:10 Influenza Type A Antigen Negative For Type A Influenza Type B Antigen Negative For Type B SARS-CoV-2, RNA, NAAT NEGATIVE SARS CoV-2 Group A Streptococcus Rapid negative (NEGATIVE) White Blood Count 10.2 K/uL (4.8-10.8) Red Blood Count 3.91 MIL/uL (4.50-6.20) L Hemoglobin 12.1 g/dL (14.0-18.0) L Hematocrit 34.8 % (42-54) L Mean Corpuscular Volume 89.0 fL (79-99) Mean Corpuscular Hemoglobin 30.9 pg (27.0-33.0) Mean Corpuscular Hemoglobin Concent 34.8 g/dL (32.0-36.0) Red Cell Distribution Width 12.6 % (11.0-15.5) Platelet Count 162 K/uL (130-400) Mean Platelet Volume 10.3 fL (7.5-10.5) Immature Granulocyte % (Auto) 0.7 % (0-1) Neutrophils (%) (Auto) 67.9 % (40.0-77.0) Lymphocytes (%) (Auto) 19.7 % (21.0-51.0) L Monocytes (%) (Auto) 6.5 % (3.0-13.0) Eosinophils (%) (Auto) 4.4 % (0.0-8.0) Basophils (%) (Auto) 0.8 % (0.0-5.0) Neutrophils # (Auto) 6.9 K/uL (1.8-7.7) Lymphocytes # (Auto) 2.0 K/uL (1.0-4.8) Monocytes # (Auto) 0.7 K/uL (0.1-1.0) Eosinophils # (Auto) 0.45 K/uL (0.00-0.70) Basophils # (Auto) 0.08 K/uL (0.00-0.20) Absolute Immature Granulocyte (auto 0.07 K/uL (0-1) Nucleated Red Blood Cells 0.0 % (0.0-0.19) Sodium Level 142 mmol/L (136-145) Potassium Level 3.6 mmol/L (3.5-5.1) Chloride Level 107 mmol/L (101-111) Carbon Dioxide Level 32 mmol/L (21-32) Blood Urea Nitrogen 12 mg/dL (7-18) Creatinine 1.0 mg/dL (0.5-1.3) Glomerular Filtration Rate Calc 80 mL/min (>90) Random Glucose 232 mg/dL (70-105) H Total Calcium 8.5 mg/dL (8.5-10.1) Magnesium Level 1.50 mg/dL (1.80-2.40) L Total Creatine Kinase 225 U/L (21-232) # Troponin I High Sensitivity 5 ng/L (4-75) B-Type Natriuretic Peptide 16 pg/mL (0-100) Labs Reviewed?: Yes MDM MDM: Differential diagnosis: Acute coronary syndrome, pneumonia, bronchitis There are no social concerns with this patient. Prescription drug management Prescriptions will include: Medical management and examination interpretation discussions were had by me with other qualified healthcare professionals as indicated for the patient's care. ED Course Orders Procedure Category Date Status Time 12 Lead Ekg Tracing- EKG 03/04/25 Complete Technical 17:55 Cbc With Differential LAB 03/04/25 Complete 17:55 Basic Metabolic Panel LAB 03/04/25 Complete 17:55 B-Type Natriuretic LAB 03/04/25 Complete Peptide 17:55 Creatine Kinase, Total LAB 03/04/25 Complete 17:55 Drug Screen Urine LAB 03/04/25 Logged 17:55 Magnesium LAB 03/04/25 Complete 17:55 Troponin I High LAB 03/04/25 Complete Sensitivity 17:55 Chest 1vw RAD 03/04/25 Resulted 17:55 Influenza Type A & B, LAB 03/04/25 Complete Rapid 18:02 Covid Rna Naat LAB 03/04/25 Complete 18:02 Rapid (Group A Strep) LAB 03/04/25 Complete 18:02 Covid Rna Naat LAB 03/04/25 Logged 18:04 Ipratropium/Albuterol PHA 03/04/25 Complete Neb (Duoneb) 18:30 Magnesium Oxide PHA 03/04/25 Complete (Mag-Ox) 19:30 Current Medications Medications (Trade) Dose Ordered Sig/Sulema Route PRN Reason Start Time Stop Time Status Last Admin Dose Admin Albuterol (DUOneb) 1 UDVIAL ONCE ONCE IH 03/04/25 18:30 03/04/25 18:44 DC 03/04/25 19:03 Magnesium Oxide (Mag-Ox) 400 mg ONCE ONCE PO 03/04/25 19:30 03/04/25 19:34 DC Vital Signs Date Time Temp Pulse Resp B/P (MAP) Pulse Ox O2 Delivery O2 Flow Rate FiO2 03/04/25 19:06 70 16 N/A Room Air 21 03/04/25 19:05 70 16 03/04/25 18:33 98.2 79 18 127/74 98 Room Air* 0 21 03/04/25 17:55 98.6 80 18 137/76 99 Room Air DX & DISP Disposition: Discharge Departure Impression: Primary Impression: Acute bronchitis Condition: Stable Scripts Methylprednisolone (Medrol) 4 Mg Tab.ds.pk 1 TAB PO AD for 6 Days, #21 TAB 0 Refills 6 on day 1 then reduce by one tablet daily until gone Prov: FARHAD RAMIREZ 03/04/25 Referrals: SUNDEEP BARAKAT MD (PCP) I have reviewed the case, and I agree with, Diagnosis and Plan I performed the substantive portion of the visit. I have reviewed and personally made and approve the management plan that is documented in the note by myself or the ARNAV. I acknowledge for responsibility for the patient's management plan. FARHAD RAMIREZ March 04, 2025 20:57
== END 2025-03-04 21:35 | disposition home or self-care (01) ==
LOC: EDH 17:51
DX: J20.9 Acute bronchitis, unspecified (principal); E11.9 Type 2 diabetes mellitus without complications; E78.00 Pure hypercholesterolemia, unspecified; I10 Essential (primary) hypertension; Z20.822 Contact with and (suspected) exposure to COVID-19; Z79.82 Long term (current) use of aspirin; Z79.85 Long-term (current) use of injectable non-insulin antidiabetic drugs; Z79.899 Other long term (current) drug therapy; Z98.890 Other specified postprocedural states
CPT/HCPCS: 36415; 71045; 80048; 82550; 83735; 83880; 84484; 85025; 87635; 87804; 87880; 93005; 94640; 99285

== ENCOUNTER 2025-03-08 00:53 | Emergency (ER) | payer OTHER, MEDICAID ==
[~2025-03-08] VITALS: Ht 157.5 cm; Wt 74.8 kg
[~2025-03-08 00:53] MED LIST changes: +METH4TAB3 PO
[2025-03-08 01:18] LABS: BASOPHILS # (AUTO) 0.09 K/uL (0.00-0.20); BASOPHILS % (AUTO) 0.7 % (0.0-5.0); EOSINOPHILS # (AUTO) 0.18 K/uL (0.00-0.70); EOSINOPHILS % (AUTO) 1.5 % (0.0-8.0); HEMATOCRIT 38.8 % (42-54); IMMATURE GRANULOCYTE ABSOLUTE 0.07 K/uL (0-1); LYMPHOCYTES % (AUTO) 24.5 % (21.0-51.0); MEAN CORPUSCULAR HEMOGLOBIN 30.9 pg (27.0-33.0); MEAN CORPUSCULAR HGB CONC 34.8 g/dL (32.0-36.0); MEAN CORPUSCULAR VOLUME 88.8 fL (79-99); MONOCYTES # (AUTO) 0.8 K/uL (0.1-1.0); MONOCYTES % (AUTO) 6.6 % (3.0-13.0); NEUTROPHILS % (AUTO) 66.1 % (40.0-77.0); PLATELET COUNT (AUTO) 216 K/uL (130-400); RED BLOOD CELL COUNT(AUTO) 4.37 MIL/uL (4.50-6.20); RED CELL DISTRIBUTION WIDTH 12.4 % (11.0-15.5); WHITE BLOOD COUNT (AUTO) 12.1 K/uL (4.8-10.8)
[2025-03-08 01:30] LABS: POTASSIUM 3.3 mmol/L (3.5-5.1)
[2025-03-08 02:09] LABS: B-TYPE NATRIURETIC PEPTIDE 9 pg/mL (0-100)
--- NOTE | 2025-03-08 02:42 | ERN ---
ED Note History of Present Illness Stated Complaint: COUGHING, SOB Chief Complaint: Multiple Complaints Time Seen by MD: 01:16 Dictation: The patient is a 74-year-old male presenting to the emergency department with with a an episode of severe coughing spell when he was sleeping that woke him up and he was short of breath. As his cough was incessant the was concerned and called EMS and brought him here. Patient reports having a persistent cough for the last two weeks. He was seen by his primary care doctor earlier this week and was prescribed Levaquin for presumed pneumonia. He denied any sputum or hemoptysis. No fevers chills or rigors. And he completed Levaquin. He received prednisone prescription on Saturday which he has not started yet. He also normally takes nebulizer treatments and he missed the treatment today Temperature 98.3� pulse 78 respirations 20 blood pressure 138/88 with a pulse oximetry of 98% on room air. Allergies: Coded Allergies: No Known Drug Allergies (Unverified Allergy, Unknown, 06/26/19) Home Meds Active Scripts Methylprednisolone (Medrol) 4 Mg Tab.ds.pk, 1 TAB PO AD for 6 Days, #21 TAB 0 Refills 6 on day 1 then reduce by one tablet daily until gone Prov:FARHAD RAMIREZ 03/04/25 Aspirin (Aspirin) 81 Mg Tab.chew, 1 TAB PO DAILY for 30 Days, #30 TAB 0 Refills Prov:PHUONG BRADLEY 10/30/24 Metoprolol Succinate (Metoprolol Succinate) 25 Mg Tab.er.24h, 0.5 TAB PO DAILY for 30 Days, #30 TAB 0 Refills Prov:PHUONG BRADLEY 10/30/24 Reported Medications Amlodipine Besylate (Amlodipine Besylate) 10 Mg Tablet, 10 MG PO DAILY for 30 Days, #30 TAB 0 Refills 10/28/24 Gabapentin (Gabapentin) 100 Mg Capsule, 100 MG PO DAILY, CAP 10/28/24 Levothyroxine Sodium (Levothyroxine) 50 Mcg Capsule, 50 MCG PO ACBKFST, CAP 10/28/24 Losartan Potassium (Losartan Potassium) 100 Mg Tablet, 100 MG PO DAILY, TAB 10/28/24 Lovastatin (Lovastatin) 20 Mg Tablet, 20 MG PO DAILY, TAB 10/28/24 Metformin HCl (Metformin HCl) 1,000 Mg Tablet, 1000 MG PO BIDMEALS, TAB 10/28/24 Semaglutide (Ozempic) 1 Mg/0.75 Ml (4 Mg/3 Ml) Pen.injctr, 1 MG SQ QWEEK for 30 Days, #3 ML 0 Refills 10/28/24 Past Medical History Past Medical History: CHF, Diabetes-Type II, High Cholesterol, Hypertension Surgical History: Other Surgical History Other: UMBILICAL HERNIA REPAIR Family History: Negative Social History: ETOH RN Note Reviewed/Agreed w/PFSH: Yes Review of System Dictation Constitutional: Negative for fever,chills, and weight loss Eyes: Negative for injury, pain,redness, and discharge ENT: Negative for injury,pain or swelling Cardiovascular: Negative for chest pain, palpitations, and edema Respiratory: Negative for shortness of breath, positive for cough, and wheezing, Abdomen/GI: Negative for abdominal pain, nausea, vomiting, diarrhea, and c onstipation Back: Negative for injury and pain : Negative for injury, bleeding and discharge MS/Extremity: Negative for injury and deformity Skin: Negative for rash, and discoloration Neuro: Negative for headache, weakness, numbness, tingling, and seizure Psych: Negative for suicide ideation, homicidal ideation, and hallucinations Initial Vital Sign VS Vital Signs Date Time Temp Pulse Resp B/P (MAP) Pulse Ox O2 Delivery O2 Flow Rate FiO2 03/08/25 00:55 98.2 78 20 138/88 98 Room Air 03/08/25 01:27 0 21 Physical Exam Dictation General: awake, alert, NAD chronically ill Head/Face: Normocephalic, atraumatic Eyes: PERRL, EOMI, vision at baseline ENT: oral cavity clear, TMs clear, no signs of infection Neck: Trachea midline, supple, no nuchal rigidity Cardiovascular: RRR, normal S1/S2, No MRGs, no JVD Respiratory: Bilateral coarse rhonchi with wheezing Abdomen: Soft, non-tender, non-distended, normal bowel sounds, no guarding or rebound. Skin: Warm, dry, normal turgor, no rash MS/Extremity: Pulses equal, no cyanosis, neurovascular intact, FROM Neuro: COAx4, GCS 15, strength 5/5, CN 2-12 intact, normal cerebellar exam, normal gait, Psych: Normal behavior, mood, and affect normal Extremities-trace edema without any palpable cords, Homans sign is negative Results (Laboratory/Radiology) Laboratory/Radiology Laboratory Tests Test 03/08/25 01:12 03/08/25 02:23 03/08/25 03:04 White Blood Count 12.1 K/uL (4.8-10.8) H Red Blood Count 4.37 MIL/uL (4.50-6.20) L Hemoglobin 13.5 g/dL (14.0-18.0) L Hematocrit 38.8 % (42-54) L Mean Corpuscular Volume 88.8 fL (79-99) Mean Corpuscular Hemoglobin 30.9 pg (27.0-33.0) Mean Corpuscular Hemoglobin Concent 34.8 g/dL (32.0-36.0) Red Cell Distribution Width 12.4 % (11.0-15.5) Platelet Count 216 K/uL (130-400) Mean Platelet Volume 10.9 fL (7.5-10.5) H Immature Granulocyte % (Auto) 0.6 % (0-1) Neutrophils (%) (Auto) 66.1 % (40.0-77.0) Lymphocytes (%) (Auto) 24.5 % (21.0-51.0) Monocytes (%) (Auto) 6.6 % (3.0-13.0) Eosinophils (%) (Auto) 1.5 % (0.0-8.0) Basophils (%) (Auto) 0.7 % (0.0-5.0) Neutrophils # (Auto) 8.0 K/uL (1.8-7.7) H Lymphocytes # (Auto) 3.0 K/uL (1.0-4.8) Monocytes # (Auto) 0.8 K/uL (0.1-1.0) Eosinophils # (Auto) 0.18 K/uL (0.00-0.70) Basophils # (Auto) 0.09 K/uL (0.00-0.20) Absolute Immature Granulocyte (auto 0.07 K/uL (0-1) Nucleated Red Blood Cells 0.0 % (0.0-0.19) Sodium Level 140 mmol/L (136-145) Potassium Level 3.3 mmol/L (3.5-5.1) L Chloride Level 103 mmol/L (101-111) Carbon Dioxide Level 31 mmol/L (21-32) Blood Urea Nitrogen 18 mg/dL (7-18) Creatinine 1.0 mg/dL (0.5-1.3) Glomerular Filtration Rate Calc 80 mL/min (>90) Random Glucose 240 mg/dL (70-105) H Total Calcium 8.5 mg/dL (8.5-10.1) Total Creatine Kinase 298 U/L (21-232) #H Troponin I High Sensitivity 7 ng/L (4-75) B-Type Natriuretic Peptide 9 pg/mL (0-100) Urine Color LIGHT-YELLOW (YELLOW) Urine Appearance CLEAR (CLEAR) Urine pH 5.5 (5.0-8.0) Urine Specific [place] 1.032 (1.001-1.031) Urine Protein NEGATIVE mg/dL (NEGATIVE) Urine Glucose (UA) >=1000 mg/dL (NEGATIVE) H Urine Ketones 5 mg/dL (NEGATIVE) H Urine Occult Blood NEGATIVE (NEGATIVE) Urine Nitrate NEGATIVE (NEGATIVE) Urine Bilirubin NEGATIVE mg/dL (NEGATIVE) Urine Urobilinogen 0.2 mg/dL (0.2-1.0) Urine Leukocyte Esterase NEGATIVE [place]/uL Urine RBC 2-5 /HPF (0-1) H Urine WBC 2-5 /HPF (0-1) H Urine Squamous Epithelial Cells FEW /HPF (0-2) Urine Bacteria FEW /HPF (None Seen) Serum Alcohol < 3 mg/dL (0-10) Labs Reviewed?: Yes ED Course ED Course Orders Procedure Category Date Status Time Vital Signs Per CPOE 03/08/25 Transmitted Routine 00:58 B-Type Natriuretic LAB 03/08/25 Complete Peptide 00:58 Chest 1vw RAD 03/08/25 Taken 00:58 12 Lead Ekg Tracing- EKG 03/08/25 Logged Technical 00:58 Oxygen By Nc/Pulse Ox CPOE 03/08/25 Transmitted 00:58 Maintain Iv CPOE 03/08/25 Transmitted 00:58 Iv Insertion CPOE 03/08/25 Transmitted 00:58 Cardiac Monitoring CPOE 03/08/25 Transmitted 00:58 Pulse Oximetry With CPOE 03/08/25 Transmitted Vs And Prn 00:58 Cbc With Differential LAB 03/08/25 Complete 00:58 Activity: Br W/Brp CPOE 03/08/25 Transmitted With Assist 00:58 Creatine Kinase, Total LAB 03/08/25 Complete 00:58 Troponin I High LAB 03/08/25 Complete Sensitivity 00:58 Urinalysis Profile LAB 03/08/25 Complete 00:58 Basic Metabolic Panel LAB 03/08/25 Complete 00:58 Methylprednisolone PHA 03/08/25 Complete Succ 125mg (Solu-Medr 03:00 Ipratropium/Albuterol PHA 03/08/25 Complete Neb (Duoneb) 03:00 Alcohol, Blood LAB 03/08/25 Complete 02:35 0.9%Nacl 1000ml (Ns PHA 03/08/25 In Process 1000ml) 03:00 Methylprednisolone PHA 03/08/25 Verified Succ 125mg (Solu-Medr 04:00 Current Medications Medications (Trade) Dose Ordered Sig/Sulema Route PRN Reason Start Time Stop Time Status Last Admin Dose Admin Albuterol (DUOneb) 1 UDVIAL ONCE ONCE IH 03/08/25 03:00 03/08/25 03:01 DC 03/08/25 03:06 Methylprednisolone Sodium Succinate (Solu-medROL 125MG) 60 mg ONCE ONCE IVP 03/08/25 03:00 03/08/25 03:01 DC 03/08/25 02:55 Sodium Chloride 1,000 ml @ 125 mls/hr ONCE ONCE IV 03/08/25 03:00 03/08/25 10:59 03/08/25 02:55 Vital Signs Date Time Temp Pulse Resp B/P (MAP) Pulse Ox O2 Delivery O2 Flow Rate FiO2 03/08/25 03:34 98.2 82 19 122/74 98 Room Air* 0 21 03/08/25 03:07 64 18 03/08/25 02:31 98.4 78 20 128/82 97 Room Air* 0 21 03/08/25 01:27 98.4 80 18 125/77 96 Room Air* 0 21 03/08/25 00:55 98.2 78 20 138/88 98 Room Air We will perform diagnostic labs, advanced imaging and administer medications according to the patient's complaint. Once the results are available, will review and personally interpreted the labs to rule out any acute life- threatening emergency the trach require immediate intervention and treatment. I will then re-evaluate the patient after treatment and diagnostic exams have return to determine whether the patient requires any further testing, can safely be discharged home or need further admission to hospital for additional treatment and evaluation. Labs [place] [address]. BNP 7 shows a K of 3.3 BUN and creatinine are 18 and 1.0. Overall chest x-ray does not show any acute infiltrate. I had a long discussion with the patient and spouse at bedside and updated them on lab work and chest x-ray findings and this is his 3rd visit to the ER and the possibility of persistent cough and this episode could be an aspiration event either from reflux and gastric contents or worsened by alcohol intoxication. They verbalized understanding and they would like to be discharged to home as they already have prednisone at home and nebulizer treatments. I have discussed extensively GERD precautions Medical Decision Making MDM MDM: Differential diagnosis: Aspiration event, COPD exacerbation, chronic GERD Rationale: Tests considered and ordered secondary to shared decision making include: Previous outside records reviewed: Old ER visits. Risk of complication and/or morbidity or mortality of patient management: None Medications-Per medication reconciliation Need for hospitalization: Patient does not meet criteria for hospitalization. Need for emergency major/minor surgery: No There are no social concerns with this patient. Prescription drug management Prescriptions will include symptomatic care Patient's prior external medical records from other ER visits were reviewed by me as indicated. Prior testing and results from previous visits were reviewed. Prior tests were taken into account with medical decision making and resource utilization, independent historian/historians were used to obtain complete medical history. I independently interpreted the test that were performed, results were reviewed by me and considered findings on radiology if ordered. Medical management and examination interpretation discussions were had by me with other qualified healthcare professionals as indicated for the patient's care. Problem List Problem List: (1) Pneumonitis (2) Aspiration into airway (3) Alcohol abuse (4) Alcohol intoxication DX & DISP Disposition: Discharge Decision to Admit Time: 02:41 Departure Impression: Primary Impression: Pneumonitis Additional Impressions: Aspiration into airway, Alcohol abuse, Alcohol intoxication Condition: Stable Additional Instructions: Patient and the caregiver have been informed of all the diagnostic tests and the imaging conducted during the today's visit to the emergency room and has verbalized understanding of the results I have personally reviewed and interpreted all diagnostic exams performed here in the ER today as well as the vital signs documented by the nursing staff. The patient is now being discharged to home and should follow up with the primary care physician or the specialist as directed by the ER staff. Follow-up with primary care provider in 1 to 2 days. Take medications as directed here in the emergency room. Okay to continue home medications unless otherwise discussed during your visit in the emergency room today. Return to your nearest emergency room if symptoms worsen or if there is no improvement. Call 911 if you need immediate assistance. Take Tylenol or Motrin [id number] as needed and if no contraindications are present. Increase oral hydration. A wound culture or urine culture was ordered here in the emergency room department please follow-up with primary care provider and advise them to get repeat ports from our facility. If you had any Scott wrap/splints that were applied here, please do not remove them until you see your primary care or specialty. Referrals: SUNDEEP BARAKAT MD (PCP) BRINDA SPIVEY MD March 08, 2025 02:42
[2025-03-08 02:50] LABS: ADD UA MICROSCOPIC YES; APPEARANCE,URINE CLEAR (CLEAR); BILIRUBIN,URINE NEGATIVE (NEGATIVE); COLOR,URINE LIGHT-YELLOW (YELLOW); GLUCOSE, URINE (UA) >=1000 mg/dL (NEGATIVE); KETONES,URINE 5 mg/dL (NEGATIVE); LEUKOCYTE ESTERASE ,URINE NEGATIVE Leu/uL (NEGATIVE); NITRATE,URINE NEGATIVE (NEGATIVE); OCCULT BLOOD,URINE NEGATIVE (NEGATIVE); PH,URINE 5.5 (5.0-8.0); PROTEIN,URINE NEGATIVE (NEGATIVE); UROBILINOGEN,URINE 0.2 mg/dL (0.2-1.0)
[2025-03-08 02:51] LABS: BACTERIA,URINE FEW /HPF (None Seen); MUCUS,URINE RARE LPF (None Seen); SQUAMOUS EPITHELIAL CELL,UR FEW /HPF (0-2)
[2025-03-08] MEDS: Solu-medROL 125MG VIAL IVP ONE (02:55)
[2025-03-08] MEDS: 0.9%NACL 1000ML 1,000 ML IV ONE (02:55)
[2025-03-08] MEDS: IpraTROPium/alBUTERol SULFATE 3 ML SOLUTION IH ONE (03:06)
[2025-03-08 03:07] VITALS: PULSE 64; RESP 18
[2025-03-08 03:34] VITALS: BP 122/74; PULSE 82; RESP 19; TEMP 98.3; O2SAT 98
[2025-03-08] MEDS: Solu-medROL 125MG VIAL IM ONE (04:06)
--- NOTE | 2025-03-08 08:47 | HMCIMG ---
Exam Type: CHEST 1VW Clinical Information: CHEST PAIN Comparison: None Findings: The lungs are clear of infiltrates. The heart is normal in size. The bony and soft tissue structures of the chest are unremarkable. Impression: Clear lungs.
--- NOTE | 2025-03-08 09:53 | EKG ---
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
== END 2025-03-08 04:11 | disposition home or self-care (01) ==
LOC: EDH 00:53
DX: J18.9 Pneumonia, unspecified organism (principal); F10.129 Alcohol abuse with intoxication, unspecified; E11.9 Type 2 diabetes mellitus without complications; E78.00 Pure hypercholesterolemia, unspecified; I11.0 Hypertensive heart disease with heart failure; I50.9 Heart failure, unspecified; Z79.82 Long term (current) use of aspirin; Z79.85 Long-term (current) use of injectable non-insulin antidiabetic drugs; Z79.899 Other long term (current) drug therapy
CPT/HCPCS: 99285; 96374; 71045; 96372; 82550; 84484; 80048; 83880; 85025; 81001; 36415; 93005; 94640; J2919 ×2; J7030